=== PATIENT | male | born 1960 | race Caucasian/White ===

== ENCOUNTER 2018-08-07 12:03 | Inpatient (IN) | payer OTHER ==
[2018-08-07] MEDS ORDERED: ASPIRIN 81 MG PO STA (12:21)
[2018-08-07] MEDS ORDERED: MORPHINE SULFATE 2 MG/ML SYRINGE IVP STA (12:21)
[2018-08-07] MEDS ORDERED: MAG HYDROX/AL HYDROX/SIMETH 30 ML, HYOSCYAMINE ELIXIR 10 ML, CIMETIDINE HCL 300 MG, LID... PO STA ×4 (12:22)
--- NOTE | 2018-08-07 12:24 | ED ---
General Adult HPI - General Chief complaint: Chest Pain Stated complaint: CHEST PAIN Time Seen by Provider: 08/07/18 12:14 Source: patient, RN notes reviewed, old records reviewed Mode of arrival: ambulatory Limitations: no limitations - History of Present Illness Initial comments: 58-year-old male 3 days of epigastric and lower chest pain. Patient states this is felt burning in nature although he does report a tightness and squeezing sensation in his chest. He initially treated this to indigestion and his been taking indigestion medication for the past several days with minimal relief. He does report some dyspnea and diaphoresis associated with the symptoms. He has previous history of CAD with stenting in 2004. Patient is a current smoker. He has had minimal cough which is nonproductive. Denies significant vomiting. Denies abdominal pain. He reports lower extremity swelling which is chronic and unchanged. - Related Data Allergies Allergy/AdvReac Type Severity Reaction Status Date / Time No Known Allergies Allergy Verified 08/07/18 12:09 Review of Systems ROS Statement: Those systems with pertinent positive or pertinent negative responses have been documented in the HPI. ROS Other: All systems not noted in ROS Statement are negative. Past Medical History Past Medical History: GERD/Reflux, Myocardial Infarction (PA) History of Any Multi-Drug Resistant Organisms: None Reported Past Surgical History: Heart Catheterization With Stent Past Psychological History: No Psychological Hx Reported Smoking Status: Current every day smoker Past Alcohol Use History: Daily Past Drug Use History: Marijuana General Exam Limitations: no limitations General appearance: alert, in distress Head exam: Present: atraumatic, normocephalic Eye exam: Present: normal appearance, PERRL Neck exam: Present: normal inspection, tenderness Respiratory exam: Present: wheezes, rhonchi. Absent: respiratory distress Cardiovascular Exam: Present: normal rhythm, bradycardia GI/Abdominal exam: Present: soft, tenderness. Absent: distended, guarding, rebound Extremities exam: Present: pedal edema, other (Venous stasis) Neurological exam: Present: alert, oriented X3 Psychiatric exam: Present: normal affect, normal mood Skin exam: Present: warm, intact, diaphoretic. Absent: cyanosis Course Vital Signs 08/07/18 12:09 Temperature 97.9 F Pulse Rate 52 L Respiratory 18 Rate Blood Pressure 118/77 O2 Sat by Pulse 94 L Oximetry EKG Findings - EKG Comments: EKG Findings:: EKG: Sinus bradycardia, ST segment elevation in the inferior leads, ST segment depression in aVL and V2. Acute PA. Rate of 52, ND interval 164, QRS duration 86, QTC 442 Medical Decision Making - Medical Decision Making 58-year-old male presenting with intermittent chest pain over the past several days, worsening within the past hour. EKG reveals acute ST segment elevation PA. Claims Director was activated, discussed case with cardiology on-call. Patient given aspirin, heparin, morphine, and Lipitor. Nitroglycerin held secondary to inferior PA. Patient taken immediately to the Claims Director. Disposition Clinical Impression: ST elevation myocardial infarction (STEMI) Disposition: ADMITTED IP TO THIS HOSP Condition: Serious Is patient prescribed a controlled substance at d/c from ED?: No Referrals: Suman Gaspar MD [Primary Care Provider] - 1-2 days Decision to Admit Reason: Admit from EC Decision Date: 08/07/18 Decision Time: 12:37
[2018-08-07] MEDS ORDERED: HEPARIN SODIUM,PORCINE 5,000 UNIT/ML 1 ML VIAL IV STA (12:32)
[2018-08-07] MEDS ORDERED: NALOXONE 0.4 MG/ML 1 ML VIAL IV PRN (12:33)
[2018-08-07] MEDS ORDERED: ATORVASTATIN 80 MG TAB PO STA (12:33)
--- NOTE | 2018-08-07 12:51 | XR ---
EXAMINATION TYPE: XR chest 1V portable DATE OF EXAM: 08/07/2018 COMPARISON: NONE HISTORY: Chest pain TECHNIQUE: Single frontal view of the chest is obtained. FINDINGS: There is no focal air space opacity, pleural effusion, or pneumothorax seen. The cardiac silhouette size is upper limits of normal. The osseous structures are intact. IMPRESSION: No acute process.
[2018-08-07 12:54] LABS: Basophils # (A) 0.1 k/uL (0-0.2); Basophils % (A) 1 %; Eosinophils # (A) 0.3 k/uL (0-0.7); Eosinophils % (A) 3 %; HCT 51.2 % (39.0-53.0); Lymphocytes # (A) 1.8 k/uL (1.0-4.8); Lymphocytes % (A) 21 %; MCHC 33.2 g/dL (31.0-37.0); MCV 99.3 fL (80.0-100.0); Mean Platelet Volume 6.6; Monocytes # (A) 0.4 k/uL (0-1.0); Monocytes % (A) 4 %; Neutrophils # (A) 6.1 k/uL (1.3-7.7); Neutrophils % (A) 70 %; Platelet Count 227 k/uL (150-450); RBC 5.16 m/uL (4.30-5.90); RDW 12.7 % (11.5-15.5); WBC 8.6 k/uL (3.8-10.6)
[2018-08-07] MEDS ORDERED: MIDAZOLAM 2 MG/2 ML VIAL IVP ONE (12:57)
[2018-08-07] MEDS ORDERED: fentaNYL (PF) 50 MCG/ML 2 ML AMP IVP ONE (12:57)
[2018-08-07] MEDS ORDERED: LIDOCAINE 1% INJ 10MG/ML (20 ML MDV) SQ ONE (12:57)
[2018-08-07] MEDS ORDERED: IV FLUID CONTINUATION 1,000 ML IV ONE (13:06)
[2018-08-07] MEDS ORDERED: HYDROmorphone 2 MG/ML 1 ML SYRINGE IVP ONE (13:12)
[2018-08-07] MEDS ORDERED: BIVALIRUDIN 250 MG in SODIUM CHLORIDE 0.9% 32 ML IV ONE (13:16)
[2018-08-07] MEDS ORDERED: BIVALIRUDIN BOLUS 250 MG/50 ML IV ONE (13:16)
[2018-08-07 13:19] LABS: Partial Thromboplastin Time 23.3 sec (22.0-30.0); Prothrombin Time 10.7 sec (9.0-12.0)
--- NOTE | 2018-08-07 13:25 | P.CARDCATH ---
Date of Procedure: 08/07/18 Preoperative Diagnosis: Acute inferior wall myocardial infarctions Postoperative Diagnosis: Total occlusion of the distal RCA Procedure(s) Performed: Left heart catheterization without left ventriculography Description of Procedure: HISTORY: This is a 58-year-old gentleman with history of ischemic or disease with a previous stent placement of the left anterior descending coronary artery done several years ago who was admitted now with complaints of chest pain and EKG evidence of acute inferior wall myocardial infarction. Patient has been having on and off symptoms for 2 days but became more steady and intense about an hour before arriving into the emergency room. Patient hasn't been following with a special makeup fx artist instructor and has been taking only aspirin. He continued to smoke CONSENT:I have discussed the risks, benefits and alternative therapies for the above-mentioned procedure and for both sedation/analgesia as well as necessary blood product administration, if indicated, as they pertain to this patient. The patient has indicated understanding and acceptance of the risks and procedures discussed. [] PROCEDURE: Patient was brought to the lab in a fasting state. Patient was given some IV sedation. The right groin is infiltrated with lidocaine and right femoral artery was entered using Seldinger technique. A 6-Austrian catheter was left in place and selective coronary arteriography was performed. Patient to lerated the procedure well. Patient went on to have stent placement of the RCA by Dr. Sykes No immediate complications. Conscious Sedation: Versed 1mg Fentanyl 50 g. Dilaudid: 0.5 milligrams Duration 25minutes HEMODYNAMICS: The aortic pressure is 140/70. Left ventricle end-diastolic pressure was not measured. SELECTIVE CORONARY ARTERIOGRAPHY: LEFT MAIN: Normal length and free of occlusive disease THE LEFT ANTERIOR DESCENDING CORONARY ARTERY:. Good caliber vessel with patent stent in the LAD THE LEFT CIRCUMFLEX AND IS CORONARY ARTERY:, Moderate caliber vessel free of any significant focal lesion THE RIGHT CORONARY ARTERY:. Large caliber vessel which is totally occluded in the mid to distal portion LEFT VENTRICULOGRAPHY: Not performed FINAL IMPRESSION:. Total occlusion of the large caliber RCA PLAN: Proceed with stent placement. Being performed by Dr. Sykes PROGNOSIS: Guarded
[2018-08-07 13:26] LABS: ALT 63 U/L (21-72); AST 52 U/L (17-59); Albumin 4.2 g/dL (3.5-5.0); Alkaline Phosphatase 52 U/L (38-126); Anion Gap 10 mmol/L; Blood Urea Nitrogen 15 mg/dL (9-20); Calcium 9.4 mg/dL (8.4-10.2); Carbon Dioxide 24 mmol/L (22-30); Chloride 103 mmol/L (98-107); Glucose 212 mg/dL (74-99); Lipase 174 U/L (23-300); Potassium 4.1 mmol/L (3.5-5.1); Sodium 137 mmol/L (137-145); Total Bilirubin 0.9 mg/dL (0.2-1.3); Total Protein 6.9 g/dL (6.3-8.2)
--- NOTE | 2018-08-07 13:29 | P.CRDCN ---
History of Present Illness Consult date: 08/07/18 History of present illness: This is a 58-year-old gentleman with history of ischemic heart disease with previous stent placement of the left anterior descending coronary artery done several years ago. Patient doesn't follow with any machine cloth measurer or physician. He has been taking only aspirin. He also resumed smoking recently. He presented to the emergency room this time with complaints of ongoing chest pains off-and-on for 2 days. Apparently the pain became a more steady one hour prior to arrival to the emergency room. His EKG showed evidence of ST elevation in inferior leads suggestive of inferior wall myocardial infarction. Patient is advised to have cardiac catheterization with the intention of primary intervention Review of Systems Not obtained Past Medical History Past Medical History: GERD/Reflux, Myocardial Infarction ([place]) History of Any Multi-Drug Resistant Organisms: None Reported Past Surgical History: Heart Catheterization With Stent Past Psychological History: No Psychological Hx Reported Smoking Status: Current every day smoker Past Alcohol Use History: Daily Past Drug Use History: Marijuana Medications and Allergies Allergies Allergy/AdvReac Type Severity Reaction Status Date / Time No Known Allergies Allergy Verified 08/07/18 12:09 Physical Exam Vitals: Vital Signs Temp Pulse Resp BP Pulse Ox 08/07/18 12:38 60 18 134/80 98 08/07/18 12:09 97.9 F 52 L 18 118/77 94 L Intake and Output 08/06/18 08/07/18 08/07/18 22:59 06:59 14:59 Other: Weight 115.666 kg GENERAL EXAM: Patient is alert and oriented and appears to be in moderate to severe distress HEART: S1 and S2 normal with no audible mumurs or gallops. Regular rhythm, femorals equal on both sides.. ABDOMEN: Soft. Lungs: appeared to be clear. SKIN: No rashes CENTRAL NERVOUS SYSTEM: No focal deficits. EXTREMITIES: No cyanosis, clubbing or edema. Results 08/07/18 12:33 08/07/18 12:33 Cardiac Enzymes 08/07/18 Range/Units 12:33 AST 52 (17-59) U/L Coagulation 08/07/18 Range/Units 12:33 PT 10.7 (9.0-12.0) sec APTT 23.3 (22.0-30.0) sec CBC 08/07/18 Range/Units 12:33 WBC 8.6 (3.8-10.6) k/uL RBC 5.16 (4.30-5.90) m/uL Hgb 17.0 (13.0-17.5) gm/dL Hct 51.2 (39.0-53.0) % Plt Count 227 (150-450) k/uL Comprehensive Metabolic Panel 08/07/18 Range/Units 12:33 Sodium 137 (137-145) mmol/L Potassium 4.1 (3.5-5.1) mmol/L Chloride 103 (98-107) mmol/L Carbon Dioxide 24 (22-30) mmol/L BUN 15 (9-20) mg/dL Creatinine 0.79 (0.66-1.25) mg/dL Glucose 212 H (74-99) mg/dL Calcium 9.4 (8.4-10.2) mg/dL AST 52 (17-59) U/L ALT 63 (21-72) U/L Alkaline Phosphatase 52 (38-126) U/L Total Protein 6.9 (6.3-8.2) g/dL Albumin 4.2 (3.5-5.0) g/dL Current Medications Generic Name Dose Route Start Last Admin Trade Name Freq PRN Reason Stop Dose Admin Naloxone HCl 0.2 mg 08/07/18 12:33 Narcan IV Q2M PRN Opioid Reversal Intake and Output 08/06/18 08/07/18 08/07/18 22:59 06:59 14:59 Other: Weight 115.666 kg Patient Weight 08/08/18 06:59 Weight 115.666 kg 08/07/18 12:33 08/07/18 12:33 EKG Interpretations (text) Sinus rhythm with acute inferior wall OK Assessment and Plan (1) Acute transmural inferior wall OK Current Visit: Yes Status: Acute Code(s): I21.19 - STEMI INVOLVING OTH CORONARY ARTERY OF INFERIOR WALL SNOMED Code(s): 01671559 (2) History of ischemic heart disease Current Visit: Yes Status: Acute Code(s): Z86.79 - PERSONAL HISTORY OF OTHER DISEASES OF THE CIRCULATORY SYSTEM SNOMED Code(s): 459755465 Plan: Proceed with cardiac catheterization with the intention of primary intervention.
[2018-08-07] MEDS ORDERED: CLOPIDOGREL 75 MG TAB PO ONE (13:30)
[2018-08-07] MEDS ORDERED: IOPAMIDOL-370 150ML BTL INJ ONE (13:31)
[2018-08-07] MEDS ORDERED: IOPAMIDOL-370 100ML BTL INJ ONE (13:34)
[2018-08-07] MEDS ORDERED: ZOLPIDEM 5 MG TAB PO PRN (13:42)
[2018-08-07] MEDS ORDERED: RX INFO: IV CONTRAST WAS GIVEN 1 EACH MISC MISCELLANE PRN (13:42)
[2018-08-07] MEDS ORDERED: NITROGLYCERIN SL TABS 0.4 MG TAB SUBLINGUAL PRN (13:42)
[2018-08-07] MEDS ORDERED: ATROPINE SULFATE 0.1 MG/ML 10ML SYRINGE IV PRN (13:42)
[2018-08-07] MEDS ORDERED: MAG HYDROX/AL HYDROX/SIMETH 30 ML CUP PO PRN (13:42)
[2018-08-07] MEDS: SODIUM CHLORIDE 0.9% 1,000 ML IV SCH ×2 (14:30→23:17)
[2018-08-07 14:55] LABS: Glucose,Whole Blood 103 mg/dL (75-99)
[2018-08-07] MEDS: NICOTINE 21MG/24HR PATCH TRANSDERM SCH (18:51)
--- NOTE | 2018-08-07 19:44 | HP ---
HISTORY AND PHYSICAL DATE OF ADMISSION AND SERVICE: 08/07/2018 PRESENTING COMPLAINT: Chest pain. HISTORY OF PRESENTING COMPLAINT: This is a pleasant 58-year-old patient who follows with Dr. Suman Gaspar. The patient has known coronary artery disease with a stent [place] [address] Giles. Patient was taking Lipitor and aspirin at home. For one month patient has been having progressive more and more chest pain, basically with activity, better with rest, and patient push it out. Patient today started with far more chest pain anteriorly with heartburn, became dizzy, lightheaded with perspiration. Pain went down the left arm and patient's symptoms became rather severe. Hence patient decided to present to the ER. In the ER patient was found to have ST elevation in the inferior leads and depression in the lateral lead and was diagnosed with acute ST-elevation myocardial infarction. Patient was taken to the cardiac catheterization lab and patient was found to have total occlusion of the large-caliber RCA. Successful angioplasty with stenting was carried out by Dr. Apodaca. Post-procedure patient was moved to the ICU. Lying in bed, not in distress. Patient's chronic stable medical conditions include GERD, hyperlipidemia, osteoarthritis. REVIEW OF SYSTEMS: CONSTITUTIONAL: Tired. HEENT: None. RESPIRATORY: As above. CARDIOVASCULAR: As above. GASTROINTESTINAL: Heartburn. GENITOURINARY: None. MUSCULOSKELETAL: Arthritic pain in joints, especially in the hands. DERMATOLOGICAL: None. HEMATOLOGICAL: None. LYMPHATICS: None. PSYCHIATRY: None. NEUROLOGICAL: None. PAST MEDICAL HISTORY: 1. Coronary artery disease with stent. 2. GERD. 3. Hyperlipidemia. PAST SURGICAL HISTORY: Cardiac cath with stent in 2005. SOCIAL HISTORY: The patient smokes a pack a day. Does 3 marijuana joints a day. Works at [employer]. . FAMILY HISTORY: Reviewed; noncontributory to presentation. HOME MEDICATIONS: 1. Motrin 200 to 400 mg q.6 p.r.n. 2. Lipitor 40 mg at bedtime. 3. Aspirin 325 p.o. daily. ALLERGIES: NONE. PHYSICAL EXAMINATION: VITAL SIGNS ON PRESENTATION: Temperature 97.9, pulse 52, respiration 18, blood pressure 118/77, pulse ox 94% on room air. GENERAL APPEARANCE: Well built; BMI 36.6. Lying in bed, comfortable. EYES: Pupils equal. Conjunctivae normal. HEENT: External appearance of nose and ears normal. Oral cavity normal. NECK: JVD not raised. Mass not palpable. RESPIRATORY: Effort normal. LUNGS: Slightly decreased breath sounds. CARDIOVASCULAR: First and second sounds normal. No edema. ABDOMEN: Soft, non-tender. Liver and spleen not palpable. LYMPHATIC: No lymph node palpable in neck or axillae. PSYCHIATRY: Alert and oriented x3. Mood and affect normal. NEUROLOGICAL: Pupils equal. Cranial nerves grossly intact. Power and sensation grossly intact. INVESTIGATIONS: White count 8.6, hemoglobin 17.0, potassium 4.1. BUN and creatinine are normal. First troponin was 0.382. Check x-ray film, personally reviewed by me, shows cardiomegaly, some venous prominence. This is a portable film. ASSESSMENT: 1. Acute ST-elevation myocardial infarction of the inferior wall. 2. Emergent cardiac catheterization with angioplasty and stent to the right coronary artery. 3. Obesity; body mass index 36.6. 4. Coronary artery disease with prior stent in 2005. 5. Gastroesophageal reflux disease. 6. Primary osteoarthritis. 7. Chronic nicotine dependence. Patient is a cigarette smoker. 8. Recreational cannabis use. PLAN: Patient is currently on aspirin, Lipitor, Plavix, Zestril, Lopressor. Will also add a nicotine patch. Care was discussed with the patient. Questions were answered. MMODL / IJN: [id number] /
--- NOTE | 2018-08-07 20:23 | PTCA ---
PERCUTANEOUSTRANS CORORONARY ANGIOGRAPHY DATE OF SERVICE: 08/07/2018 PERFORMING PHYSICIAN: Jamel Apodaca MD, cardiovascular operating room nurse. PROCEDURE PERFORMED: Successful stenting of the mid right coronary artery using a 4.0 x 18 mm Xience drug- eluting stent with an excellent angiographic result and reduction of stenosis from 100% to 0%. INDICATION: This is a pleasant 58-year-old gentleman with known history of coronary artery disease who presented to the hospital with chest discomfort and was diagnosed with acute inferior ST-elevation myocardial infarction. He underwent heart catheterization by Dr. Carlson and was found to have an acute total occlusion of the mid right coronary artery. COMPLICATIONS: None. LEVEL OF SEDATION: Moderate, with sedation length of 21 minutes. PROCEDURE DESCRIPTION: Please refer to the diagnostic heart catheterization that was performed by Dr. Carlson. Anticoagulation was initiated using Angiomax. Subsequently I did engage the right coronary artery using JR4 guide. A run-through wire was used to wire the right coronary artery. After that I did balloon angioplasty of the right coronary artery using a 3.5 x 15 mm balloon before I deployed a 4.0 x 18 mm Xience drug-eluting stent where the stent was positioned under fluoroscopic guidance and deployed under 20 atmospheres for 20 seconds. The following angiogram showed excellent angiographic results and the procedure was completed without any complication. POST-PROCEDURE MANAGEMENT: 1. Dual anti-platelet therapy. 2. Risk factor modifications. 3. Follow up with the patient. MMODL / IJN: [id number] /
[2018-08-07] MEDS ORDERED: METOPROLOL TARTRATE 25 MG TAB PO SCH (21:00)
[2018-08-07] MEDS: ATORVASTATIN 80 MG TAB PO SCH (21:24)
[2018-08-07] MEDS: FAMOTIDINE 20 MG TAB PO SCH (21:25)
[2018-08-08 05:49] LABS: Basophils % (A) 0 %; Eosinophils # (A) 0.2 k/uL (0-0.7); Eosinophils % (A) 2 %; HCT 51.1 % (39.0-53.0); HGB 16.3 gm/dL (13.0-17.5); Lymphocytes # (A) 1.4 k/uL (1.0-4.8); Lymphocytes % (A) 16 %; MCH 32.5 pg (25.0-35.0); MCHC 31.9 g/dL (31.0-37.0); MCV 101.9 fL (80.0-100.0); Macrocytosis Slight; Mean Platelet Volume 6.7; Monocytes # (A) 0.5 k/uL (0-1.0); Monocytes % (A) 6 %; Neutrophils # (A) 6.4 k/uL (1.3-7.7); Neutrophils % (A) 75 %; Platelet Count 177 k/uL (150-450); RBC 5.01 m/uL (4.30-5.90); RDW 12.8 % (11.5-15.5); WBC 8.5 k/uL (3.8-10.6)
[2018-08-08 06:00] LABS: Anion Gap 4 mmol/L; Blood Urea Nitrogen 13 mg/dL (9-20); Calcium 8.9 mg/dL (8.4-10.2); Carbon Dioxide 27 mmol/L (22-30); Chloride 107 mmol/L (98-107); Cholesterol 165 mg/dL (<200); Glucose 132 mg/dL (74-99); HDL Cholesterol 34 mg/dL (40-60); LDL Cholesterol,Calculated 90 mg/dL (0-99); Potassium 4.6 mmol/L (3.5-5.1); Sodium 138 mmol/L (137-145); Triglycerides 207 mg/dL (<150)
[2018-08-08] MEDS: ASPIRIN 325 MG TAB PO SCH (08:35)
[2018-08-08] MEDS: FAMOTIDINE 20 MG TAB PO SCH ×2 (08:35→20:34)
[2018-08-08] MEDS: LISINOPRIL 10 MG TAB PO SCH (08:35)
[2018-08-08] MEDS: NICOTINE 21MG/24HR PATCH TRANSDERM SCH (08:36)
--- NOTE | 2018-08-08 10:08 | ECHOF ---
Referral Reason:S/P STEMI MEASUREMENTS -------- HEIGHT: 182.9 cm WEIGHT: 115.7 kg BP: 141/88 IVSd: 1.5 cm (0.6 - 1.1) LVIDd: 5.1 cm (3.9 - 5.3) LVPWd: 1.7 cm (0.6 - 1.1) IVSs: 2.4 cm LVIDs: 2.9 cm LVPWs: 2.5 cm Ao Diam: 2.7 cm (2.0 - 3.7) LA Diam: 3.4 cm (2.7 - 3.8) MV E Serg: 0.69 m/s MV DecT: 177 ms MV A Serg: 0.72 m/s MV E/A Ratio: 0.96 RAP: 5.00 mmHg RVSP: 7.40 mmHg FINDINGS -------- Sinus rhythm. This was a technically difficult study with suboptimal views. The left ventricular size is normal. There is moderate concentric left ventricular hypertrophy. O verall left ventricular systolic function is mildly impaired with, an EF between 45 - 50 %. Basal i nferior LV wall motion is hypokinetic. Mid inferior LV wall motion is hypokinetic. The right ventricle is normal in size and function. The left atrial size is normal. The right atrium is normal in size. Lumason used The aortic valve was not well visualized. There is trace mitral regurgitation. Trace tricuspid regurgitation present. The right ventricular systolic pressure, as measured by Dopp ler, is 7.40mmHg. The pulmonic valve was not well visualized. The aortic root size is normal. IVC Not well visulized. The pericardium is normal. CONCLUSIONS -------- 1. Sinus rhythm. 2. This was a technically difficult study with suboptimal views. 3. The left ventricular size is normal. 4. There is moderate concentric left ventricular hypertrophy. 5. Overall left ventricular systolic function is mildly impaired with, an EF between 45 - 50 %. 6. Basal inferior LV wall motion is hypokinetic. 7. Mid inferior LV wall motion is hypokinetic. 8. The right ventricle is normal in size and function. 9. The left atrial size is normal. 10. The right atrium is normal in size. 11. Lumason used 12. The aortic valve was not well visualized. 13. There is trace mitral regurgitation. 14. Trace tricuspid regurgitation present. 15. The right ventricular systolic pressure, as measured by Doppler, is 7.40mmHg. 16. The pulmonic valve was not well visualized. 17. The aortic root size is normal. 18. IVC Not well visulized. 19. The pericardium is normal. [employer] OPERATOR: Kate Orta RDCS
--- NOTE | 2018-08-08 10:11 | P.PN ---
Subjective Progress Note Date: 08/08/18 This is a 58-year-old gentleman who was admitted yesterday through emergency room with acute inferior wall myocardial infarction. Patient had a cardiac catheterization and stent placement of the RCA. Patient has been doing well. He remained stable. Patient was mildly bradycardic, Yesterday. Today his heart rate is about 55-60. Blood pressure is about 130/90. Patient is currently on Zestril, metoprolol, Lipitor, aspirin and Plavix. His groin is soft. Lungs are clear. Heart is regular. We'll increase his activity. Transfer him to stepdown unit. Echocardiogram. If possible discharge within next 24-48 hours Objective - Vital Signs Vital signs: Vital Signs Temp 97.6 F 08/08/18 08:00 Pulse 62 08/08/18 09:00 Resp 12 08/08/18 09:00 BP 157/93 08/08/18 09:00 Pulse Ox 95 08/08/18 09:00 Intake & Output 08/07/18 08/08/18 08/08/18 18:59 06:59 18:59 Intake Total 712 1200 490 Output Total 2000 1000 550 Balance -1288 200 -60 Weight 115.666 kg 114.8 kg Intake: IV 712 1200 250 IV Fluid Continuation 1, 200 000 ml @ 0 mls/hr IV .K [facility] Rx#:[id number] Sodium Chloride 0.9% 1, 300 1200 250 000 ml @ 100 mls/hr IV . Q10H [facility] Rx#:[id number] Oral 240 Output: Urine 1999 1000 550 Other: Voiding Method Urinal Urinal Urinal # Voids 1 1 - Exam GENERAL EXAM: Patient is alert and oriented and doesn't appear to be in any acute distress HEENT: Normocephalic. Normal reaction of pupils, equal size, normal range of extraocular motion. No erythema or exudates in the throat. NECK: No masses, no nuchal rigidity. CHEST: No chest wall deformity. LUNGS: Equal air entry with no crackles or wheeze. HEART: S1 and S2 normal with no audible mumurs or gallops. Regular rhythm, femorals equal on both sides.. ABDOMEN: No hepatosplenomegaly, normal bowel sounds, no guarding or rigidity. SKIN: No rashes CENTRAL NERVOUS SYSTEM: No focal deficits. EXTREMITIES: No cyanosis, clubbing or edema. PUNCTURE SITE: Right groin seems to soft without any hematoma - Labs CBC & Chem 7: 08/08/18 05:05 08/08/18 05:05 Labs: Abnormal Lab Results - Last 24 Hours (Table) 08/07/18 08/07/18 08/07/18 Range/Units 12:33 12:33 14:43 MCV (80.0-100.0) fL Glucose 212 H (74-99) mg/dL POC Glucose (mg/dL) 103 H (75-99) mg/dL Troponin I 0.382 H* (0.000-0.034) ng/mL Triglycerides (<150) mg/dL HDL Cholesterol (40-60) mg/dL 08/08/18 08/08/18 Range/Units 05:05 05:05 MCV 101.9 H (80.0-100.0) fL Glucose 132 H (74-99) mg/dL POC Glucose (mg/dL) (75-99) mg/dL Troponin I (0.000-0.034) ng/mL Triglycerides 207 H (<150) mg/dL HDL Cholesterol 34 L (40-60) mg/dL Assessment and Plan (1) Acute transmural inferior wall [place] Current Visit: Yes Status: Acute Code(s): I21.19 - STEMI INVOLVING OTH CORONARY ARTERY OF INFERIOR WALL SNOMED Code(s): 58368118 (2) History of ischemic heart disease Current Visit: Yes Status: Acute Code(s): Z86.79 - PERSONAL HISTORY OF OTHER DISEASES OF THE CIRCULATORY SYSTEM SNOMED Code(s): 342341834 Plan: Patient's activity to be increased. Patient to be transferred to stepdown unit. Continue current medical therapy. Patient is encouraged to quit smoking
[2018-08-08] MEDS: METOPROLOL TARTRATE 12.5 MG TAB PO SCH ×2 (10:59→20:34)
[2018-08-08 11:05] VITALS: BMI 36.3
[2018-08-08] MEDS: CLOPIDOGREL 75 MG TAB PO SCH (12:33)
[2018-08-08] MEDS: ATORVASTATIN 80 MG TAB PO SCH (20:34)
--- NOTE | 2018-08-09 00:34 | PN ---
PROGRESS NOTE DATE OF SERVICE: 08/08/2018. PRESENTING COMPLAINT: Chest pain. INTERVAL HISTORY: This patient presented with acute FL with coronary intervention. Today feels a bit tired. Breathing is stable. No chest pain. Wants to rest. REVIEW OF SYSTEMS: Done for constitutional, cardiovascular, GI, pulmonary; relevant findings as above. CURRENT MEDICATIONS: Reviewed include aspirin, Lipitor, Plavix, Zestril, Lopressor. PHYSICAL EXAMINATION: VITAL SIGNS: Temperature 97.7, pulse 59, respirations 18, blood pressure 147/82, pulse ox 93 percent on room air. GENERAL APPEARANCE: Lying in bed, awake. EYES: Pupils equal. Conjunctivae normal. NECK: JVD not raised. Mass not palpable. Respiratory effort normal. LUNGS: Decreased breath sounds. CARDIOVASCULAR: 1st and 2nd heart sounds normal. No edema. ABDOMEN: Soft, nontender. Liver and spleen not palpable. PSYCHIATRY: Alert and oriented x3. Mood and affect normal. INVESTIGATIONS: White count 8.5, hemoglobin 16.3, potassium 4.6. BUN and creatinine normal. Troponin 9.4, LDL 90. 2D echocardiogram results are noted. ASSESSMENT: 1. Acute ST-elevation myocardial infarction of the inferior wall. 2. Emergent cardiac cath with angioplasty and stent to the RCA. 3. Obesity; BMI 36.6. 4. Coronary artery with prior stent in 2005. 5. Gastroesophageal reflux disease. 6. Primary osteoarthritis. 7. Chronic nicotine dependence, patient is a cigarette smoker. 8. Recreational cannabis use. 9. Ischemic cardiomyopathy both from diastolic and systolic dysfunction. PLAN: Continue medication and treatment plan. Patient encouraged to be out of bed. MMODL / IJN: [id number] /
[2018-08-09 06:07] VITALS: RESP 18
[2018-08-09] MEDS: NICOTINE 21MG/24HR PATCH TRANSDERM SCH (08:02)
[2018-08-09] MEDS: CLOPIDOGREL 75 MG TAB PO SCH (08:02)
[2018-08-09] MEDS: METOPROLOL TARTRATE 12.5 MG TAB PO SCH (08:02)
[2018-08-09] MEDS: ASPIRIN 325 MG TAB PO SCH (08:02)
[2018-08-09] MEDS: FAMOTIDINE 20 MG TAB PO SCH (08:02)
[2018-08-09] MEDS: LISINOPRIL 10 MG TAB PO SCH (08:02)
[2018-08-09 08:10] VITALS: TEMP 98.2
[2018-08-09 11:41] VITALS: BP 173/89; PULSE 64
[2018-08-09] MEDS ORDERED: LISINOPRIL 10 MG TAB PO STA (11:49)
--- NOTE | 2018-08-09 13:09 | P.PN ---
Subjective Progress Note Date: 08/09/18 This is a 58-year-old gentleman who was admitted yesterday through emergency room with acute inferior wall myocardial infarction. Patient had a cardiac catheterization and stent placement of the RCA. Patient has been doing well. He remained stable. Patient was mildly bradycardic, Yesterday. Today his heart rate is about 55-60. Blood pressure is about 130/90. Patient is currently on Zestril, metoprolol, Lipitor, aspirin and Plavix. His groin is soft. Lungs are clear. Heart is regular. We'll increase his activity. Transfer him to stepdown unit. Echocardiogram. If possible discharge within next 24-48 hours. 08/09/2018: This a 58-year-old gentleman was admitted with acute inferior wall. Had stent placement of the RCA. Clinically stable. His echocardiogram showed mild hypokinesis of the inferobasal segment with an ejection fraction close to 50%. Denies any chest pain or shortness of breath. Lungs are clear. Heart is regular. Patient is tolerating activity. He could be discharged home on aspirin and Plavix. Lisinopril. Metoprolol and also Lipitor. Follow-up in the office in one week. Objective - Vital Signs Vital signs: Vital Signs Temp 98.2 F 08/09/18 11:39 Pulse 64 08/09/18 11:39 Resp 18 08/09/18 11:39 BP 173/89 08/09/18 11:39 Pulse Ox 94 L 08/09/18 11:39 Intake & Output 08/08/18 08/09/18 08/09/18 18:59 06:59 18:59 Intake Total 1090 240 180 Output Total 550 Balance 540 240 180 Weight 114.8 kg 112.3 kg Intake: IV 250 Sodium Chloride 0.9% 1, 250 000 ml @ 100 mls/hr IV . Q10H LANIE Rx#:[id number] Oral 840 240 180 Output: Urine 550 Other: Voiding Method Urinal Urinal # Voids 1 1 - Exam GENERAL EXAM: Patient is alert and oriented and doesn't appear to be in any acute distress HEENT: Normocephalic. Normal reaction of pupils, equal size, normal range of extraocular motion. No erythema or exudates in the throat. NECK: No masses, no nuchal rigidity. CHEST: No chest wall deformity. LUNGS: Equal air entry with no crackles or wheeze. HEART: S1 and S2 normal with no audible mumurs or gallops. Regular rhythm, femorals equal on both sides.. ABDOMEN: No hepatosplenomegaly, normal bowel sounds, no guarding or rigidity. SKIN: No rashes CENTRAL NERVOUS SYSTEM: No focal deficits. EXTREMITIES: No cyanosis, clubbing or edema. PUNCTURE SITE: Right groin seems to soft without any hematoma - Labs CBC & Chem 7: 08/08/18 05:05 08/08/18 05:05 Assessment and Plan (1) Acute transmural inferior wall CA Current Visit: Yes Status: Acute Code(s): I21.19 - STEMI INVOLVING OTH CORONARY ARTERY OF INFERIOR WALL SNOMED Code(s): 91934580 (2) History of ischemic heart disease Current Visit: Yes Status: Acute Code(s): Z86.79 - PERSONAL HISTORY OF OTHER DISEASES OF THE CIRCULATORY SYSTEM SNOMED Code(s): 005316533 Plan: Patient's activity to be increased. Patient to be transferred to stepdown unit. Continue current medical therapy. Patient is encouraged to quit smoking. 08/09/2018. Patient remained clinically stable. Tolerating activity well. No arrhythmias noted. Echo showed mild hypokinesis of the inferobasal segment with an ejection fraction of 50%. Patient is being discharged home. Follow-up in the office
--- NOTE | 2018-08-09 20:59 | DS ---
DISCHARGE SUMMARY DATE OF ADMISSION: August 07, 2018. DATE OF DISCHARGE: August 09, 2018. FINAL DIAGNOSES: 1. Acute ST-elevation myocardial infarction of the inferior wall. 2. Emergent cardiac catheterization with angioplasty and stent to the RCA. 3. Obesity; BMI 36.6. 4. Coronary artery disease with prior stent in 2005. 5. Gastroesophageal reflux disease. 6. Primary osteoarthritis. 7. Chronic nicotine dependence, patient is a cigarette smoker. 8. Recreational cannabis use. 9. Ischemic cardiomyopathy both from diastolic and systolic dysfunction, EF 45-50 percent. HOSPITAL COURSE: This patient presented with chest pain, ruled in for [place]. Above intervention was carried out. The patient advised against smoking and cannabis use. Doing better, up and about seen by Cardiology today. The patient is okay to be discharged home. CONSULTATION: Dr. Carlson from Cardiology, Dr. Apodaca from Interventional Cardiology. PHYSICAL EXAMINATION: VITAL SIGNS: Temperature 98.2. Pulse 54, respiratory 18, blood pressure 169/93, pulse ox 92 percent on room air. LUNGS: Fair air entry. CARDIOVASCULAR: 1st and 2nd sounds normal. LABORATORY DATA: White count 8.5, hemoglobin 16.3, potassium 4.6, LDL 90. DISCHARGE MEDICATIONS: 1. Aspirin 81 mg a day. 2. Lipitor 80 mg q.h.s. 3. Plavix 75 mg a day. 4. Pepcid 20 mg b.i.d. 5. Zestril 20 mg p.o. daily. 6. Lopressor 12.5 p.o. b.i.d. 7. Nicotine 21 mg patch. 8. Nitrostat 0.4 sublingual q.5 p.r.n. FOLLOWUP: Follow up with Dr. Gaspar on August 31, 2018, follow up with Dr. Carlson in [address] Suman Gaspar. MMODL / IJN: [id number] /
[2018-08-10] MEDS ORDERED: ASPIRIN 81 MG PO SCH (09:00)
[2018-08-10] MEDS ORDERED: LISINOPRIL 20 MG TAB PO SCH (09:00)
[2018-08-10] MEDS ORDERED: ASPIRIN 325 MG TAB PO SCH (09:00)
== END 2018-08-09 16:22 | disposition home or self-care (01) | DRG 247 ==
LOC: EC 12:03 → 2SICU 12:33 → 3SCARD 08-08 11:41
PROVIDERS: ADMIT Hospitalist; ATTEND Hospitalist
PROC: B2111ZZ Fluoroscopy of Multiple Coronary Arteries using Low Osmolar Contrast (ICD-10-PCS; 2018-08-07)
PROC: 4A023N7 Measurement of Cardiac Sampling and Pressure, Left Heart, Percutaneous Approach (ICD-10-PCS; principal; 2018-08-07 08:55)
PROC: 027034Z Dilation of Coronary Artery, One Artery with Drug-eluting Intraluminal Device, Percutaneous Approach (ICD-10-PCS; 2018-08-07 08:55)
DX: I21.19 ST elevation (STEMI) myocardial infarction involving other coronary artery of inferior wall (principal); K21.9 Gastro-esophageal reflux disease without esophagitis; F17.200 Nicotine dependence, unspecified, uncomplicated; I25.10 Atherosclerotic heart disease of native coronary artery without angina pectoris; I25.82 Chronic total occlusion of coronary artery; E66.9 Obesity, unspecified; E78.5 Hyperlipidemia, unspecified; F17.210 Nicotine dependence, cigarettes, uncomplicated; F32.9 Major depressive disorder, single episode, unspecified; I25.5 Ischemic cardiomyopathy; M19.91 Primary osteoarthritis, unspecified site; Z68.36 Body mass index [BMI] 36.0-36.9, adult; I25.2 Old myocardial infarction; Z95.5 Presence of coronary angioplasty implant and graft; Z79.82 Long term (current) use of aspirin; Z79.899 Other long term (current) drug therapy
CPT/HCPCS: 71045; 80048; 80053; 80061; 83690; 83735; 83880; 84484; 85025; 85610; 85730; 93306; 93454; 96374; 96375; 99285; C1874

== ENCOUNTER 2019-12-10 21:28 | Inpatient (IN) | payer OTHER ==
[2019-12-10] MEDS ORDERED: ASPIRIN 81 MG PO STA (21:50)
[2019-12-10] MEDS ORDERED: NITROGLYCERIN-D5W PMX 50 MG in DEXTROSE/WATER 1 250ML.BAG IV ONE (21:50)
--- NOTE | 2019-12-10 21:50 | ED ---
Chest Pain HPI - General Chief Complaint: Chest Pain Stated Complaint: Poss heart attack Time Seen by Provider: 12/10/19 21:30 Source: patient, family Mode of arrival: wheelchair Limitations: no limitations - History of Present Illness Initial Comments: Patient is a 59-year-old male with past medical history of [place] who presents to the emergency department with reported chest pain. He states that the pain started around 8 PM. He describes it as a heavy sensation in his chest. He also reports that he has some numbness and tingling in his bilateral wrists. States that the pain feels much familiar to when he had a heart attack last year. Patient has a stent that was placed in 2005. Patient was then cathed last year in July after he had a STEMI and an additional stent was placed. Patient denies a ripping or tearing sensation to his back. Denies any upper extremity weakness. No shortness of breath, cough or hemoptysis. No lower extremity swelling. No history of DVT or PE. Pain is graded as a 9 out of 10. No other alleviating, precipitating or modifying factors - Related Data Home Medications Medication Instructions Recorded Confirmed Atorvastatin [Lipitor] 40 mg PO HS 12/10/19 12/10/19 Metoprolol Tartrate [Lopressor] 12.5 mg PO BID 12/10/19 12/10/19 Previous Rx's Medication Instructions Recorded Lisinopril [Zestril] 20 mg PO DAILY #90 tab 08/09/18 Nitroglycerin Sl Tabs [Nitrostat] 0.4 mg SUBLINGUAL Q5M PRN #1 bottle 08/09/18 Apixaban [Eliquis] 2.5 mg PO BID #60 tablet 12/14/19 Aspirin 81 mg PO DAILY #30 chew 12/14/19 Ticagrelor [Brilinta] 90 mg PO BID #60 tab 12/14/19 Allergies Allergy/AdvReac Type Severity Reaction Status Date / Time No Known Allergies Allergy Verified 12/10/19 23:02 Review of Systems ROS Statement: Those systems with pertinent positive or pertinent negative responses have been documented in the HPI. ROS Other: All systems not noted in ROS Statement are negative. EKG Findings - EKG Comments: EKG Findings:: EKG done at 2138 instructed to sinus bradycardia with a ventricular rate of 56. UT interval 156. QRS 88. QTC of 407. No acute ST segment elevations. Very minimal ST depression in V5 and V6 as well as 1 and aVF. Inverted T-wave in lead 3. No signs of high degree block. No STEMI criteria met. EKG completed at 1229 demonstrates a continued sinus bradycardia with a ventricular rate of 53. UT interval 160. QRS 92. QTC of 435. Patient continues to not have any ST elevation. Q-wave in aVF persists. Mild ST depression in aVL, v5-6 Past Medical History Past Medical History: GERD/Reflux, Myocardial Infarction ([place]) Last Myocardial Infarction Date:: 08/07/2018 History of Any Multi-Drug Resistant Organisms: None Reported Past Surgical History: Heart Catheterization With Stent Date of Last Stent Placement:: 08/07/2018 Past Psychological History: No Psychological Hx Reported Smoking Status: Current every day smoker General Exam Limitations: no limitations General appearance: alert, in no apparent distress Head exam: Present: atraumatic, normocephalic, normal inspection Eye exam: Present: normal appearance, PERRL, EOMI. Absent: scleral icterus, conjunctival injection, periorbital swelling ENT exam: Present: normal exam, mucous membranes moist Neck exam: Present: normal inspection. Absent: tenderness, meningismus, lymphadenopathy Respiratory exam: Present: normal lung sounds bilaterally. Absent: respiratory distress, wheezes, rales, rhonchi, stridor Cardiovascular Exam: Present: regular rate, normal rhythm, normal heart sounds. Absent: systolic murmur, diastolic murmur, rubs, gallop, clicks GI/Abdominal exam: Present: soft, normal bowel sounds. Absent: distended, tenderness, guarding, rebound, rigid Extremities exam: Present: normal inspection, full ROM, normal capillary refill. Absent: tenderness, pedal edema, joint swelling, calf tenderness Back exam: Present: normal inspection Neurological exam: Present: alert, oriented X3, CN II-XII intact Psychiatric exam: Present: normal affect, normal mood Skin exam: Present: warm, dry, intact, normal color. Absent: rash Course Vital Signs 12/10/19 12/10/19 12/11/19 21:31 23:00 00:18 Temperature 97.8 F Pulse Rate 55 L 58 L 60 Pulse Rate [ Pulse Oximetery ] Respiratory 18 17 18 Rate Blood Pressure 132/83 124/83 126/85 Blood Pressure [Right Arm] O2 Sat by Pulse 94 L 96 96 Oximetry 12/11/19 12/11/19 00:32 00:56 Temperature 97.8 F Pulse Rate 56 L Pulse Rate [ 60 Pulse Oximetery ] Respiratory 17 19 Rate Blood Pressure 123/82 Blood Pressure 127/86 [Right Arm] O2 Sat by Pulse 96 96 Oximetry Chest Pain MDM - MDM On arrival patient is probably placed in the trauma bay 2. A thorough history and physical exam was performed. Patient is hooked up to continuous pulse ox and cardiac monitoring. As the patient's symptoms are concerning for acute coronary syndrome he was given 324 mg of chewable aspirin and started on a nitro drip. 12-lead EKG demonstrates no acute ST segment elevation. Lab studies were conducted the patient went for chest x-ray. Lab studies are remarkable for a troponin of 1.5. X-ray is negative for acute critical new process. I did discuss the case with Dr. Crouch at 2308. Patient's pain is well-controlled after Tylenol was given for headache and 4 mg of morphine was given for mild persistent chest pain. Dr. Crouch would like the patient heparinize made nothing by mouth. Patient reports sustaining blunt head trauma last week and because of this the patient is sent for CT which demonstrates no acute intracranial hemorrhage. After this the patient is heparinizes he has no contraindications. Family was updated. Patient was then transferred to the stepdown unit in stable condition Critical Care Time Critical Care Time: Yes Critical Care Time: 35 minutes Disposition Clinical Impression: Acute non-ST elevation myocardial infarction (NSTEMI), Chest pain, History of ischemic heart disease Disposition: ADMITTED IP TO THIS HOSP Condition: Serious Is patient prescribed a controlled substance at d/c from ED?: No Decision to Admit Reason: Admit from EC Decision Date: 12/10/19 Decision Time: 23:27
[2019-12-10 22:02] LABS: Basophils # (A) 0.1 k/uL (0-0.2); Basophils % (A) 1 %; Eosinophils # (A) 0.3 k/uL (0-0.7); Eosinophils % (A) 3 %; HCT 51.7 % (39.0-53.0); HGB 17.3 gm/dL (13.0-17.5); Lymphocytes % (A) 17 %; MCH 33.2 pg (25.0-35.0); MCHC 33.5 g/dL (31.0-37.0); Monocytes # (A) 0.8 k/uL (0-1.0); Monocytes % (A) 7 %; Neutrophils # (A) 8.3 k/uL (1.3-7.7); Neutrophils % (A) 72 %; Platelet Count 228 k/uL (150-450); RBC 5.22 m/uL (4.30-5.90); WBC 11.7 k/uL (3.8-10.6)
[2019-12-10 22:16] LABS: Partial Thromboplastin Time 23.1 sec (22.0-30.0); Prothrombin Time 10.5 sec (9.0-12.0)
[2019-12-10 22:28] LABS: ALT 44 U/L (4-49); AST 47 U/L (17-59); African American GFR (CKD) >90 (>60 ml/min/1.73 sqM); Albumin 4.2 g/dL (3.5-5.0); Alkaline Phosphatase 59 U/L (38-126); Anion Gap 8 mmol/L; Blood Urea Nitrogen 15 mg/dL (9-20); Calcium 9.6 mg/dL (8.4-10.2); Carbon Dioxide 23 mmol/L (22-30); Chloride 102 mmol/L (98-107); Glucose 118 mg/dL (74-99); Magnesium 2.2 mg/dL (1.6-2.3); Non-African American GFR(CKD) >90 (>60 ml/min/1.73 sqM); Potassium 4.5 mmol/L (3.5-5.1); Sodium 133 mmol/L (137-145); Total Bilirubin 1.4 mg/dL (0.2-1.3); Total Protein 6.8 g/dL (6.3-8.2)
--- NOTE | 2019-12-10 22:32 | XR ---
EXAMINATION TYPE: XR chest 2V DATE OF EXAM: 12/10/2019 COMPARISON: 08/07/2018 HISTORY: Chest pain TECHNIQUE: FINDINGS: Heart is normal. Lungs are clear of infiltrate. There is no heart failure. There are no hil ar masses. There are chest leads. Costophrenic angles are clear. IMPRESSION: No active cardiopulmonary disease. Normal heart. No change.
[2019-12-10] MEDS ORDERED: ONDANSETRON 4 MG/2 ML VIAL IVP STA (22:44)
[2019-12-10] MEDS ORDERED: HEPARIN SODIUM,PORCINE 5,000 UNIT/ML 1 ML VIAL IV PRN (23:13)
[2019-12-10] MEDS: HEPARIN SODIUM,PORCINE 5,000 UNIT/ML 1 ML VIAL IV ONE (23:27)
[2019-12-10] MEDS ORDERED: MORPHINE SULFATE 4 MG/ML SYRINGE IVP STA (23:31)
[2019-12-10] MEDS ORDERED: ACETAMINOPHEN TAB 325 MG TAB PO STA (23:32)
--- NOTE | 2019-12-10 23:56 | CT ---
EXAMINATION TYPE: CT brain wo con DATE OF EXAM: 12/10/2019 COMPARISON: None HISTORY: injury CT DLP: 1186.4 mGycm Automated exposure control for dose reduction was used. Images were obtained of the brain without contrast. Ventricles and sulci are fairly normal. There is no mass effect nor midline shift. There is no sign o f intracranial hemorrhage. Calvarium is intact. There is no evidence of cerebral edema. Temporal bone s show normal aeration. IMPRESSION: Negative unenhanced head CT scan.
[2019-12-11] MEDS ORDERED: NALOXONE 0.4 MG/ML 1 ML VIAL IV PRN (00:07)
[2019-12-11] MEDS: HEPARIN SODIUM,PORCINE 5,000 UNIT/ML 1 ML VIAL IV ONE (00:10)
[2019-12-11] MEDS: HEPARIN SOD,PORK IN 0.45% NACL 25,000 UNIT in 0.45% NACL 1 250ML.BAG IV SCH ×2 (00:10→04:46)
[2019-12-11] MEDS ORDERED: NITROGLYCERIN-D5W PMX 50 MG in DEXTROSE/WATER 1 250ML.BAG IV ONE (00:30)
[2019-12-11] MEDS: MORPHINE SULFATE 4 MG/ML SYRINGE IV PRN ×3 (04:44→18:42)
[2019-12-11] MEDS: SODIUM CHLORIDE 0.9% 1,000 ML IV SCH ×2 (05:05→17:50)
[2019-12-11 06:43] LABS: Basophils % (A) 1 %; Eosinophils # (A) 0.3 k/uL (0-0.7); Eosinophils % (A) 4 %; HCT 50.8 % (39.0-53.0); HGB 16.5 gm/dL (13.0-17.5); Lymphocytes # (A) 1.4 k/uL (1.0-4.8); Lymphocytes % (A) 17 %; MCH 32.5 pg (25.0-35.0); MCHC 32.5 g/dL (31.0-37.0); Monocytes # (A) 0.6 k/uL (0-1.0); Monocytes % (A) 7 %; Neutrophils # (A) 5.8 k/uL (1.3-7.7); Neutrophils % (A) 71 %; Platelet Count 184 k/uL (150-450); RBC 5.08 m/uL (4.30-5.90); RDW 12.1 % (11.5-15.5); WBC 8.1 k/uL (3.8-10.6)
[2019-12-11 07:07] LABS: Partial Thromboplastin Time 29.9 sec (22.0-30.0); Prothrombin Time 10.5 sec (9.0-12.0)
[2019-12-11] MEDS: METOPROLOL TARTRATE 12.5 MG TAB PO SCH ×2 (07:54→21:11)
[2019-12-11] MEDS: LISINOPRIL 20 MG TAB PO SCH (07:54)
[2019-12-11] MEDS ORDERED: ALPRAZolam 0.5 MG TAB PO PRN (08:46)
[2019-12-11] MEDS ORDERED: ASPIRIN 325 MG TAB PO STA (08:46)
[2019-12-11] MEDS ORDERED: NITROGLYCERIN SL TABS 0.4 MG TAB SUBLINGUAL PRN (08:46)
[2019-12-11] MEDS ORDERED: ALPRAZolam 0.25 MG TAB PO PRN (08:46)
[2019-12-11] MEDS ORDERED: SODIUM CHLORIDE 0.9% 1,000 ML in EMPTY BAG 1 BAG IV ONE (08:46)
[2019-12-11] MEDS ORDERED: ATORVASTATIN 80 MG TAB PO STA (08:46)
--- NOTE | 2019-12-11 09:31 | P.CRDCN ---
History of Present Illness Consult date: 12/11/19 History of present illness: This is a 59-year-old gentleman with history of ischemic heart disease and stent placement of the left anterior descending coronary artery done several years ago who had stent placement of the RCA in August of this year in the setting of acute inferior wall [place]. Patient has been doing fairly well since then. About 4 days ago patient had a burning chest discomfort and some headache and also some discomfort in the both the wrist. It lasted for a couple of hours and then subsided. Last night patient had similar pain again discarded as a burning sensation across the chest associated some headache and also discomfort in the both wrists. He took couple of nitroglycerin with partial relief. In the emergency room patient was given morphine and Tylenol along with nitroglycerin with relief of pains. His EKG did not reveal any acute changes. However troponin values are abnormal, suggestive of possible unstable angina. In view of his previous history and abnormal enzymes, patient is advised to have a cardiac catheterization for definitive diagnosis. Patient is fully aware of the risks and benefits of the procedure Review of Systems As per the chart Past Medical History Past Medical History: GERD/Reflux, Myocardial Infarction ([place]) Last Myocardial Infarction Date:: 08/07/2018 History of Any Multi-Drug Resistant Organisms: None Reported Past Surgical History: Heart Catheterization With Stent Past Anesthesia/Blood Transfusion Reactions: No Reported Reaction Date of Last Stent Placement:: 08/07/2018 Past Psychological History: No Psychological Hx Reported Smoking Status: Current every day smoker Medications and Allergies Home Medications Medication Instructions Recorded Confirmed Type Lisinopril [Zestril] 20 mg PO DAILY #90 tab 08/09/18 12/10/19 Rx Nitroglycerin Sl Tabs [Nitrostat] 0.4 mg SUBLINGUAL Q5M PRN #1 bottle 08/09/18 12/10/19 Rx Atorvastatin [Lipitor] 40 mg PO HS 12/10/19 12/10/19 History Metoprolol Tartrate [Lopressor] 12.5 mg PO BID 12/10/19 12/10/19 History Allergies Allergy/AdvReac Type Severity Reaction Status Date / Time No Known Allergies Allergy Verified 12/10/19 23:02 Physical Exam Vitals: Vital Signs Temp Pulse Pulse Resp BP BP Pulse Ox 12/11/19 07:58 97.9 F 55 L 18 115/63 94 L 12/11/19 04:00 97.7 F 53 L 17 103/67 93 L 12/11/19 00:56 56 L 19 123/82 96 12/11/19 00:32 97.8 F 60 17 127/86 96 12/11/19 00:18 60 18 126/85 96 12/10/19 23:00 58 L 17 124/83 96 12/10/19 21:31 97.8 F 55 L 18 132/83 94 L Intake and Output 12/10/19 12/11/19 12/11/19 22:59 06:59 14:59 Intake Total 45.995 30.83 Balance 45.995 30.83 Intake: Intake, IV Titration 45.995 30.83 Amount Heparin Sod,Pork in 0.45% 45.995 30.83 NaCl 25,000 unit In 0.45 % NaCl 1 250ml.bag @ 9.19 UNITS/KG/HR 9.999 mls/hr IV .Q24H [facility] Rx#: [id number] Other: Voiding Method Toilet Weight 108.862 kg 109.4 kg GENERAL EXAM: Patient is alert and oriented and doesn't appear to be in any acute distress HEENT: Normocephalic. Normal reaction of pupils, equal size, normal range of extraocular motion. No erythema or exudates in the throat. NECK: No masses, no nuchal rigidity. CHEST: No chest wall deformity. LUNGS: Equal air entry with no crackles or wheeze. HEART: S1 and S2 normal with no audible mumurs or gallops. Regular rhythm, femorals equal on both sides.. ABDOMEN: No hepatosplenomegaly, normal bowel sounds, no guarding or rigidity. SKIN: No rashes CENTRAL NERVOUS SYSTEM: No focal deficits. EXTREMITIES: No cyanosis, clubbing or edema. Results 12/11/19 06:28 12/10/19 21:50 Cardiac Enzymes 12/10/19 12/10/19 12/11/19 Range/Units 21:50 21:50 02:45 AST 47 (17-59) U/L Troponin I 1.520 H* 1.900 H* (0.000-0.034) ng/mL 12/11/19 Range/Units 06:28 AST (17-59) U/L Troponin I 1.720 H* (0.000-0.034) ng/mL Coagulation 12/10/19 12/11/19 Range/Units 21:50 06:28 PT 10.5 10.5 (9.0-12.0) sec APTT 23.1 29.9 (22.0-30.0) sec CBC 12/10/19 12/11/19 Range/Units 21:50 06:28 WBC 11.7 H 8.1 (3.8-10.6) k/uL RBC 5.22 5.08 (4.30-5.90) m/uL Hgb 17.3 16.5 (13.0-17.5) gm/dL Hct 51.7 50.8 (39.0-53.0) % Plt Count 228 184 (150-450) k/uL Comprehensive Metabolic Panel 12/10/19 Range/Units 21:50 Sodium 133 L (137-145) mmol/L Potassium 4.5 (3.5-5.1) mmol/L Chloride 102 (98-107) mmol/L Carbon Dioxide 23 (22-30) mmol/L BUN 15 (9-20) mg/dL Creatinine 0.84 (0.66-1.25) mg/dL Glucose 118 H (74-99) mg/dL Calcium 9.6 (8.4-10.2) mg/dL AST 47 (17-59) U/L ALT 44 (4-49) U/L Alkaline Phosphatase 59 (38-126) U/L Total Protein 6.8 (6.3-8.2) g/dL Albumin 4.2 (3.5-5.0) g/dL Current Medications Generic Name Dose Route Start Last Admin Trade Name Freq PRN Reason Stop Dose Admin Alprazolam 0.25 mg 12/11/19 08:46 Xanax PO Q6HR PRN Mild Anxiety Alprazolam 0.5 mg 12/11/19 08:46 Xanax PO Q6HR PRN Moderate Anxiety Atorvastatin Calcium 40 mg 12/11/19 21:00 Lipitor PO HS LANIE Heparin Sodium (Porcine) 0 unit 12/10/19 23:13 12/11/19 07:47 Heparin IV 4,000 unit PER PROTOCOL PRN Administration Low PTT Protocol Heparin Sodium/Sodium Chloride 250 mls @ 9.999 mls/hr 12/10/19 23:15 12/11/19 07:51 25,000 unit/ Sodium Chloride IV 12.19 units/kg/hr .Q24H LANIE 13.263 mls/hr Titration Protocol 9.19 UNITS/KG/HR Sodium Chloride 1,000 mls @ 75 mls/hr 12/11/19 00:15 12/11/19 05:05 Saline 0.9% IV 75 mls/hr .[id number] LANIE Administration Nitroglycerin/Dextrose 50 mg/ 250 mls @ 1.5 mls/hr 12/11/19 00:30 12/11/19 04:48 IV Solution IV 12/12/19 00:29 5 mcg/min .Q24H ONE 1.5 mls/hr Administration 5 MCG/MIN Sodium Chloride 1,000 ml/ IV 1,000 mls @ 109.4 mls/hr 12/11/19 08:46 Solution IV 12/11/19 17:54 .Q9H9M ONE 1 ML/KG/HR Lisinopril 20 mg 12/11/19 09:00 12/11/19 07:54 Zestril PO 20 mg DAILY LANIE Administration Metoprolol Tartrate 12.5 mg 12/11/19 09:00 12/11/19 07:54 Lopressor PO 12.5 mg BID LANIE Administration Morphine Sulfate 4 mg 12/11/19 00:07 12/11/19 04:44 Morphine Sulfate (Inj) IV 4 mg Q4HR PRN Administration Severe Pain Naloxone HCl 0.2 mg 12/11/19 00:07 Narcan IV Q2M PRN Opioid Reversal Nitroglycerin 0.4 mg 12/11/19 08:46 Nitrostat SUBLINGUAL Q5M PRN Chest Pain Intake and Output 12/10/19 12/11/19 12/11/19 22:59 06:59 14:59 Intake Total 45.995 30.83 Balance 45.995 30.83 Intake: Intake, IV Titration 45.995 30.83 Amount Heparin Sod,Pork in 0.45% 45.995 30.83 NaCl 25,000 unit In 0.45 % NaCl 1 250ml.bag @ 9.19 UNITS/KG/HR 9.999 mls/hr IV .Q24H [facility] Rx#: [id number] Other: Voiding Method Toilet Weight 108.862 kg 109.4 kg 12/11/19 06:28 12/10/19 21:50 EKG Interpretations (text) Sinus rhythm Assessment and Plan (1) Essential hypertension Current Visit: Yes Status: Acute Code(s): I10 - ESSENTIAL (PRIMARY) HYPERTENSION SNOMED Code(s): 25297175 (2) Acute non-ST elevation myocardial infarction (NSTEMI) Current Visit: Yes Status: Acute Code(s): I21.4 - NON-ST ELEVATION (NSTEMI) MYOCARDIAL INFARCTION SNOMED Code(s): 084995254 (3) History of ischemic heart disease Current Visit: Yes Status: Acute Code(s): Z86.79 - PERSONAL HISTORY OF OTHER DISEASES OF THE CIRCULATORY SYSTEM SNOMED Code(s): 897281782 Plan: Will proceed with cardiac catheterization. Meanwhile continue with heparin, aspirin, nitrates and beta blockers. Echocardiogram. Further recommendations depend upon clinical course
[2019-12-11] MEDS ORDERED: IV FLUID CONTINUATION 850 ML IV ONE (10:00)
[2019-12-11] MEDS ORDERED: VERAPAMIL 2.5 MG/ML 2 ML AMP ONE (10:05)
[2019-12-11] MEDS ORDERED: HEPARIN SODIUM 1,000 UN/ML (10ML VL) ONE (10:05)
[2019-12-11] MEDS ORDERED: LIDOCAINE 1% INJ 10MG/ML (20 ML MDV) ONE (10:05)
[2019-12-11] MEDS ORDERED: fentaNYL (PF) 50 MCG/ML 2 ML AMP ONE (10:06)
[2019-12-11] MEDS ORDERED: MIDAZOLAM 2 MG/2 ML VIAL IV ONE (10:16)
[2019-12-11] MEDS: fentaNYL (PF) 50 MCG/ML 2 ML AMP IV ONE ×2 (10:16→11:03)
[2019-12-11] MEDS ORDERED: LIDOCAINE 1% INJ 10MG/ML (20 ML MDV) SQ ONE (10:18)
[2019-12-11] MEDS ORDERED: VERAPAMIL SYRINGE (5 MG/10 ML) INTRAARTER ONE (10:20)
[2019-12-11] MEDS ORDERED: HEPARIN SODIUM 1,000 UN/ML (10ML VL) IV ONE ×2 (10:22→11:02)
--- NOTE | 2019-12-11 10:47 | P.CARDCATH ---
Date of Procedure: 12/11/19 Preoperative Diagnosis: Non-STEMI Postoperative Diagnosis: Total occlusion of the RCA Procedure(s) Performed: Left heart catheterization without left ventriculography Description of Procedure: HISTORY: This is a 59-year-old gentleman with history of ischemic or disease with a previous stent placement of the LAD and recent stent placement of the RCA in August in the setting of acute inferior wall ID. Patient came now with compl aints of recurrent chest pain starting Saturday. Last night he came around 8:00 PM with chest pain. His EKG did not reveal any acute changes but his cardiac enzymes are positive. Patient is advised to have a cardiac catheterization for definitive diagnosis. CONSENT:I have discussed the risks, benefits and alternative therapies for the above-mentioned procedure and for both sedation/analgesia as well as necessary blood product administration, if indicated, as they pertain to this patient. The patient has indicated understanding and acceptance of the risks and procedures discussed. PROCEDURE: Patient was brought to the lab in a fasting state. Patient was given some IV sedation. The right groin is infiltrated with lidocaine and right femoral artery was entered using Seldinger technique. A 6-Sudanese catheter was left in place and selective coronary arteriography and left ventriculography was performed. Patient tolerated the procedure well. Femoral angiogram was performed and Angio-Seal was applied for hemostasis. No immediate complications were noted and patient was transferred to [facility] in a stable condition Conscious Sedation: Versed 1mg Fentanyl 50 g Duration 23minutes HEMODYNAMICS: The aortic pressure is 104/63. The left ventricle end-diastolic pressure is 8-12. There was no gradient across the aortic valve SELECTIVE CORONARY ARTERIOGRAPHY: LEFT MAIN: Normal length and free of any significant occlusive disease THE LEFT ANTERIOR DESCENDING CORONARY ARTERY:. Fair caliber vessel giving rise to good-sized diagonal branch. Patent stent without any other significant occlusive disease THE LEFT CIRCUMFLEX AND IS CORONARY ARTERY:. Moderate caliber vessel giving rise to moderate caliber OM branch. Free of occlusive disease THE RIGHT CORONARY ARTERY:. Totally occluded proximal to the previous stent LEFT VENTRICULOGRAPHY: Not PERFORMED FINAL IMPRESSION: Total occlusion of the RCA PLAN:. Repeat stent placement the RCA to be done by Dr. Sykes PROGNOSIS: Guarded
[2019-12-11] MEDS ORDERED: IOPAMIDOL-370 100ML BTL INJ ONE ×2 (11:39→11:55)
[2019-12-11] MEDS ORDERED: TICAGRELOR 90 MG TAB ONE (11:43)
[2019-12-11] MEDS ORDERED: TICAGRELOR 90 MG TAB PO ONE (11:46)
--- NOTE | 2019-12-11 12:00 | ECHOF ---
Referral Reason:assess lvf MEASUREMENTS -------- HEIGHT: 152.4 cm WEIGHT: 109.3 kg BP: RVIDd: 4.0 cm (< 3.3) IVSd: 1.4 cm (0.6 - 1.1) LVIDd: 5.0 cm (3.9 - 5.3) LVPWd: 1.4 cm (0.6 - 1.1) IVSs: 1.6 cm LVIDs: 4.1 cm LVPWs: 1.9 cm LA Diam: 4.3 cm (2.7 - 3.8) LAESV Index (A-L): 32.24 ml/m Ao Diam: 3.0 cm (2.0 - 3.7) AV Cusp: 2.2 cm (1.5 - 2.6) MV EXCURSION: 19.371 mm (> 18.000) MV EF SLOPE: 93 mm/s (70 - 150) EPSS: 0.7 cm MV E Serg: 0.77 m/s MV DecT: 165 ms MV A Serg: 0.74 m/s MV E/A Ratio: 1.04 RAP: 5.00 mmHg RVSP: 12.14 mmHg FINDINGS -------- Sinus rhythm. This was a techncally difficult study with suboptimal views, , Lumason utilized for enhancement of im ages. The left ventricular size is normal. There is moderate concentric left ventricular hypertrophy. O verall left ventricular systolic function is mild-moderately impaired with, an EF between 40 - 45 %. Basal posterior LV wall motion is hypokinetic. Basal inferior LV wall motion is hypokinetic. Mid inferior LV wall motion is hypokinetic. Apical inferior LV wall motion is hypokinetic. The right ventricle is moderately enlarged. LA is midly dilated 29-33ml/m2. The right atrial size is normal. 5.0mg OF Lumason UTLIZED: 2 OR MORE WALL SEGMENTS NOT VISUALIZED. The aortic valve is trileaflet, and appears structurally normal. No aortic stenosis or regurgitation. The mitral valve is normal. Mild mitral regurgitation is present. The tricuspid valve appears structurally normal. Mild tricuspid regurgitation present. Right vent ricular systolic pressure is normal at < 35 mmHg. The pulmonic valve was not well visualized. There is no pulmonic regurgitation present. There is no pericardial effusion. CONCLUSIONS -------- 1. This was a techncally difficult study with suboptimal views, , Lumason utilized for enhancement of images. 2. There is moderate concentric left ventricular hypertrophy. 3. Overall left ventricular systolic function is mild-moderately impaired with, an EF between 40 - 45 %. 4. Basal posterior LV wall motion is hypokinetic. 5. Basal inferior LV wall motion is hypokinetic. 6. Mid inferior LV wall motion is hypokinetic. 7. Apical inferior LV wall motion is hypokinetic. 8. The right ventricle is moderately enlarged. 9. LA is midly dilated 29-33ml/m2. 10. 5.0mg OF Lumason UTLIZED: 2 OR MORE WALL SEGMENTS NOT VISUALIZED. 11. The aortic valve is trileaflet, and appears structurally normal. No aortic stenosis or regurgitat ion. 12. Mild mitral regurgitation is present. 13. Mild tricuspid regurgitation present. 14. There is no pericardial effusion. CONTRACT ENGINEER: Diandra Park RDCS
[2019-12-11] MEDS ORDERED: MAG HYDROX/AL HYDROX/SIMETH 30 ML CUP PO PRN (12:01)
[2019-12-11] MEDS ORDERED: ATROPINE SULFATE 0.1 MG/ML 10ML SYRINGE IV PRN (12:01)
[2019-12-11] MEDS ORDERED: RX INFO: IV CONTRAST WAS GIVEN 1 EACH MISC MISCELLANE PRN (12:01)
[2019-12-11] MEDS ORDERED: ZOLPIDEM 5 MG TAB PO PRN (12:01)
[2019-12-11] MEDS ORDERED: HYDROmorphone 1 MG/ML 1 ML SYRINGE IVP ONE (12:03)
[2019-12-11 15:42] VITALS: BMI 34.6
--- NOTE | 2019-12-11 16:13 | PTCA ---
PERCUTANEOUSTRANS CORORONARY ANGIOGRAPHY DATE OF SERVICE: 12/11/2019 PERFORMING PHYSICIAN: Jamel Apodaca M.D. PROCEDURE PERFORMED: 1. Aspiration thrombectomy from the right coronary artery. 2. Balloon angioplasty of the mid right coronary artery using a 4.0 x 15 mm balloon with reduction of stenosis from 100% to about 50% and ESTEVAN-2 flow. INDICATION: This is a 59-year-old gentleman with coronary artery disease and prior stenting of the RCA who was admitted to the hospital with chest discomfort and ruled in for acute non- ST-elevation myocardial infarction. He was seen by Dr. Carlson, who performed heart catheterization which showed occluded RCA in the mid portion just proximal to a stented segment. Percutaneous coronary intervention was advised. APPROACH: Right radial artery. COMPLICATIONS: None. LEVEL OF SEDATION: Moderate, with sedation length of 56 minutes. PROCEDURE DESCRIPTION: Please refer to diagnostic heart catheterization that was performed by Dr. Carlson. Anticoagulation was initiated using heparin; the patient was given weight-based heparin with continuous ACT monitoring throughout the procedure. The RCA was engaged using JR4 guide. I had difficulty crossing the occlusion in the mid RCA using a run-through wire, but finally I was able to get it using a Whisper wire with the backup support of over the wire balloon. The wire was advanced all the way to the distal right coronary artery. I did aspiration thrombectomy of the RCA in the mid portion using an [place] catheter. Balloon angioplasty initially was attempted using a 3.0 x 15 and then a 3.5 x 15 mm balloon, and I did balloon angioplasty of the mid RCA, but I was unable to restore flow. There was a lesion inside the stent the balloon did not cross and because of that I used a 1.5 mm balloon, and with that balloon I was able to cross the lesion and did balloon angioplasty. After that I was able to achieve balloon angioplasty of the whole mid RCA using a 4.0 mm balloon. I did an angiogram and that showed large thrombus involving the mid RCA extending to the distal right coronary artery. I attempted advancing a stent, and that was unsuccessful. Advancing the stent was unsuccessful even using a ashanti wire with a run-through wire. At that point, I decided to start the patient on Aggrastat overnight and bring the patient tomorrow for a second look to see if the clot was resolved from the mid and distal right coronary artery. POST-PROCEDURE MANAGEMENT: 1. ICU admission. 2. Aggrastat overnight. 3. Follow up with the patient. MMODL / IJN: [id number] /
--- NOTE | 2019-12-11 20:24 | P.HPIM ---
History of Present Illness H&P Date: 12/11/19 Chief Complaint: Chest pain History of presenting complaint: This is a very pleasant [address] Suman harper. Chronic stable medical conditions include GERD, primary osteoarthritis, ischemic cardiomyopathy EF 45%. Patient yesterday having episode of chest burning sensation going across the chest. Also felt a bit of a headache hearted of the wrist no shortness of breath no dizziness no lightheadedness. Last symptoms last for quite a while. Patient presented to ER. Patient ruled in for an acute NH. Patient did not radiate anywhere. Review of systems: GEN.: Tired EYES: None HEENT: None NECK: None RESPIRATORY: None CARDIOVASCULAR: As above GASTROINTESTINAL: None GENITOURINARY: None MUSCULOSKELETAL: None LYMPHATICS: None HEMATOLOGICAL: None PSYCHIATRY: None NEUROLOGICAL: None Past medical history to include: GERD, coronary artery with stent in August 2018 Social history: Working at [employer]. . Patient smoked a pack a day since the age of 15 stopped 3 months ago. Currently no alcohol Family history: Reviewed, noncontributory to presentation Physical examination: VITAL SIGNS: 97.8, 55, 18, 132/83, 94% on room air GENERAL: 34.6, reclining in bed, tired. EYES: Pupils equal. Conjunctiva normal. HEENT: External appearance of nose and ears normal, oral cavity grossly normal. NECK: JVD not raised; masses not palpable. HEART: First and second heart sounds are normal; no edema. LUNGS: Respiratory rate increased, decreased breath sounds. ABDOMEN: Soft, nontender, liver spleen not palpable, no masses palpable. PSYCH: Alert and oriented x3; mood and affect tiredl. NEUROLOGICAL: Cranial nerves grossly intact; no facial asymmetry, power and sensation grossly intact. LYMPHATICS: No lymph nodes palpable in the axilla and neck INVESTIGATIONS, reviewed in the clinical context: White count 11.7 hemoglobin 7.3 platelets 228 potassium 4.5 creatinine 0.84 Troponin I 1.5 1.9 1.7 COVID 19 PCR-not detected EKG tracing personally reviewed by me-sinus rhythm with some ST segment depression in lead 1 aVL and V3 to V6 Chest x-ray film personally reviewed by me-cardiomegaly, questionable venous prominence Computed tomography scan of the brain-unremarkable 2-D echocardiogram-concentric LVH, wall motion operability especially in the inferior wall, EF 40-45% Assessment: -Acute non-Q-wave myocardial infarction -Coronary artery disease with prior stent to the RCA -Obesity BMI 34.6 -GERD -Primary osteoarthritis -Chronic congestive heart failure from systolic dysfunction EF 40-45% Plan: Patient was taken to the cardiac can labeler and patient was found to have total occlusion of the RCA. Patient had been on IV heparin. Home medications resumed. Including aspirin. Saw the patient this afternoon. Patient late in the day supposed to go back and have further stenting to the RCA. Care was discussed with the patient. Questions were answered Past Medical History Past Medical History: GERD/Reflux, Myocardial Infarction (NH) Last Myocardial Infarction Date:: 08/07/2018 History of Any Multi-Drug Resistant Organisms: None Reported Past Surgical History: Heart Catheterization With Stent Past Anesthesia/Blood Transfusion Reactions: No Reported Reaction Date of Last Stent Placement:: 08/07/2018 Past Psychological History: No Psychological Hx Reported Smoking Status: Current every day smoker Medications and Allergies Home Medications Medication Instructions Recorded Confirmed Type Lisinopril [Zestril] 20 mg PO DAILY #90 tab 08/09/18 12/10/19 Rx Nitroglycerin Sl Tabs [Nitrostat] 0.4 mg SUBLINGUAL Q5M PRN #1 bottle 08/09/18 12/10/19 Rx Atorvastatin [Lipitor] 40 mg PO HS 12/10/19 12/10/19 History Metoprolol Tartrate [Lopressor] 12.5 mg PO BID 12/10/19 12/10/19 History Allergies Allergy/AdvReac Type Severity Reaction Status Date / Time No Known Allergies Allergy Verified 12/10/19 23:02 Physical Exam Vitals: Vital Signs Temp Pulse Pulse Resp BP BP Pulse Ox 12/11/19 08:00 55 L 18 12/11/19 07:58 97.9 F 55 L 18 115/63 94 L 12/11/19 04:00 97.7 F 53 L 17 103/67 93 L 12/11/19 00:56 56 L 19 123/82 96 12/11/19 00:32 97.8 F 60 17 127/86 96 12/11/19 00:18 60 18 126/85 96 12/10/19 23:00 58 L 17 124/83 96 12/10/19 21:31 97.8 F 55 L 18 132/83 94 L Intake and Output 12/10/19 12/11/19 12/11/19 22:59 06:59 14:59 Intake Total 45.995 30.83 Balance 45.995 30.83 Intake: Intake, IV Titration 45.995 30.83 Amount Heparin Sod,Pork in 0.45% 45.995 30.83 NaCl 25,000 unit In 0.45 % NaCl 1 250ml.bag @ 9.19 UNITS/KG/HR 9.999 mls/hr IV .Q24H [facility] Rx#: [id number] Other: Voiding Method Toilet Toilet Weight 108.862 kg 109.4 kg Results CBC & Chem 7: 12/11/19 06:28 12/10/19 21:50 Labs: Abnormal Lab Results - Last 24 Hours (Table) 12/10/19 12/10/19 12/10/19 Range/Units 21:50 21:50 21:50 WBC 11.7 H (3.8-10.6) k/uL Neutrophils # 8.3 H (1.3-7.7) k/uL Sodium 133 L (137-145) mmol/L Glucose 118 H (74-99) mg/dL Total Bilirubin 1.4 H (0.2-1.3) mg/dL Troponin I 1.520 H* (0.000-0.034) ng/mL 12/11/19 12/11/19 Range/Units 02:45 06:28 WBC (3.8-10.6) k/uL Neutrophils # (1.3-7.7) k/uL Sodium (137-145) mmol/L Glucose (74-99) mg/dL Total Bilirubin (0.2-1.3) mg/dL Troponin I 1.900 H* 1.720 H* (0.000-0.034) ng/mL Thrombosis Risk Factor Assmnt - Choose All That Apply Any of the Below Risk Factors Present?: Yes Each Factor Represents 1 point: Acute NH Other Risk Factors: Yes Each Risk Factor Represents 2 Points: Age 61-74 years Other congenital or acquired thrombophilia - If yes, enter type in comment: No Thrombosis Risk Factor Assessment Total Risk Factor Score: 3 Thrombosis Risk Factor Assessment Level: Moderate Risk
[2019-12-11] MEDS: ATORVASTATIN 40 MG TAB PO SCH (21:11)
[2019-12-11] MEDS: TICAGRELOR 90 MG TAB PO SCH (21:11)
[2019-12-11] MEDS: TIROFIBAN 12.5MG-250ML NS 250 ML IV SCH (21:12)
[2019-12-12] MEDS: METOPROLOL TARTRATE 12.5 MG TAB PO SCH ×2 (06:30→20:22)
[2019-12-12] MEDS: LISINOPRIL 20 MG TAB PO SCH (06:45)
[2019-12-12 06:52] LABS: Basophils % (A) 0 %; Eosinophils # (A) 0.2 k/uL (0-0.7); Eosinophils % (A) 2 %; HCT 48.7 % (39.0-53.0); HGB 16.3 gm/dL (13.0-17.5); Lymphocytes # (A) 1.1 k/uL (1.0-4.8); Lymphocytes % (A) 13 %; MCH 33.8 pg (25.0-35.0); MCHC 33.4 g/dL (31.0-37.0); MCV 101.2 fL (80.0-100.0); Monocytes # (A) 0.5 k/uL (0-1.0); Monocytes % (A) 6 %; Neutrophils # (A) 6.6 k/uL (1.3-7.7); Neutrophils % (A) 78 %; Platelet Count 194 k/uL (150-450); RBC 4.81 m/uL (4.30-5.90); RDW 12.1 % (11.5-15.5); WBC 8.5 k/uL (3.8-10.6)
[2019-12-12 06:56] LABS: African American GFR (CKD) >90 (>60 ml/min/1.73 sqM); Anion Gap 9 mmol/L; Blood Urea Nitrogen 14 mg/dL (9-20); Calcium 9.2 mg/dL (8.4-10.2); Carbon Dioxide 23 mmol/L (22-30); Chloride 103 mmol/L (98-107); Glucose 123 mg/dL (74-99); Non-African American GFR(CKD) >90 (>60 ml/min/1.73 sqM); Potassium 4.7 mmol/L (3.5-5.1); Sodium 135 mmol/L (137-145)
[2019-12-12 07:05] LABS: Prothrombin Time 10.1 sec (9.0-12.0)
[2019-12-12] MEDS: ASPIRIN 81 MG PO SCH (07:46)
[2019-12-12] MEDS: TICAGRELOR 90 MG TAB PO SCH ×2 (07:46→20:22)
[2019-12-12] MEDS ORDERED: VERAPAMIL 2.5 MG/ML 2 ML AMP ONE (08:02)
[2019-12-12] MEDS ORDERED: LIDOCAINE 1% INJ 10MG/ML (20 ML MDV) ONE (08:03)
[2019-12-12] MEDS ORDERED: LIDOCAINE 1% INJ 10MG/ML (20 ML MDV) SQ ONE (08:23)
[2019-12-12] MEDS ORDERED: MIDAZOLAM 2 MG/2 ML VIAL IVP ONE (08:23)
[2019-12-12] MEDS ORDERED: HYDROmorphone 1 MG/ML 1 ML SYRINGE ONE (08:28)
[2019-12-12] MEDS ORDERED: HYDROmorphone 1 MG/ML 1 ML SYRINGE IVP ONE (08:30)
[2019-12-12] MEDS ORDERED: IOPAMIDOL-370 100ML BTL INJ ONE (08:51)
[2019-12-12] MEDS ORDERED: IV FLUID CONTINUATION 600 ML IV ONE (08:52)
[2019-12-12] MEDS ORDERED: RX INFO: IV CONTRAST WAS GIVEN 1 EACH MISC MISCELLANE PRN (08:55)
[2019-12-12] MEDS ORDERED: SODIUM CHLORIDE 0.9% 1,000 ML IV SCH (09:00)
[2019-12-12] MEDS: SODIUM CHLORIDE 0.9% 1,000 ML IV SCH (09:16)
[2019-12-12] MEDS: TIROFIBAN 12.5MG-250ML NS 250 ML IV SCH ×2 (09:16→09:17)
[2019-12-12] MEDS: APIXABAN 2.5 MG TABLET PO SCH ×2 (09:17→20:22)
--- NOTE | 2019-12-12 10:11 | CC ---
CARDIAC CATHETERIZATION REPORT DATE OF SERVICE: December 12, 2019 PERFORMING PHYSICIAN: Jamel Apodaca MD. PROCEDURE PERFORMED: Selective right coronary angiogram. INDICATION: This is a very pleasant 59-year-old gentleman who sees Dr. Carlson in the office as an outpatient who was admitted to the hospital with chest discomfort and ruled in for acute [id number] myocardial infarction. He underwent heart catheterization by Dr. Carlson and was found to have occluded RCA in the midportion. Yesterday, he underwent crossing the lesion but the patient was found to have large thrombus involving the RCA in the mid and distal portion. Aspiration thrombectomy was attempted and in spite of that the clot was large. The patient was started on Aggrastat overnight and he was brought today for 2nd look. COMPLICATION: None. LEVEL OF SEDATION: Moderate with sedation length of 25 minutes. PROCEDURE DESCRIPTION: After obtaining informed consent, the patient was brought to the cardiac laboratory geneticist. The right common femoral artery was cannulated using micropuncture technique and a micropuncture wire passed easily. Then I placed a 6-Armenian sheath at the right common femoral artery. I did selective right coronary angiogram using an Amplatzer 1 guiding catheter. Supposedly we were going to intervene on the RCA. The procedure was completed at that point. SELECTIVE CORONARY ANGIOGRAM: The right coronary artery is a large caliber vessel and is a dominant vessel. The RCA in the proximal portion is ectatic. The mid to distal RCA has clot which continues to be large, but the flow in the RCA appeared to be ESTEVAN-3 flow. The distal RCA is angiographically normal and bifurcates into PDA and PLV branches both appeared to be angiographically normal. CONCLUSION: Large residual thrombus was identified in the mid and mid to distal right coronary artery, but with ESTEVAN-3 flow. POSTPROCEDURE MANAGEMENT: I decided to start the patient on oral anticoagulation at this point. He was chest pain free. The flow in the RCA was ESTEVAN-[address] or T-wave abnormalities. Maybe down the line, he will be brought for a 3rd look in about 4-6 weeks to assess the status of the right coronary artery. MMODL / IJN: [id number] /
[2019-12-12] MEDS: MORPHINE SULFATE 4 MG/ML SYRINGE IV PRN (10:58)
[2019-12-12] MEDS: ATORVASTATIN 40 MG TAB PO SCH (20:22)
--- NOTE | 2019-12-12 22:22 | P.PN ---
Progress Note - Text Progress Note Date: 12/12/19 Chief Complaint: Chest pain History of presenting complaint: This is a very pleasant [address] Suman harper. Chronic stable medical conditions include GERD, primary osteoarthritis, ischemic cardiomyopathy EF 45%. Patient yesterday having episode of chest burning sensation going across the chest. Also felt a bit of a headache hearted of the wrist no shortness of breath no dizziness no lightheadedness. Last symptoms last for quite a while. Patient presented to ER. Patient ruled in for an acute AR. Patient did not radiate anywhere. Admitted with acute non-Q-wave AR. Patient's taken to the cardiac cath laboratory Dr. Apodaca he did aspiration thrombectomy. In spite of balloon angioplasty flow was not restored. Placement of the stent was unsuccessful. Today-patient's taken back to the cardiac catheterization lab. Aspiration thrombectomy was attempted. Often large thrombus. No stent was placed. Dr. Apodaca reported that patient have to be brought back for a third stroke in 4-6 weeks. Postprocedure this morning patient is having some discomfort in the left lower rib cage. No shortness breath. Review of systems: Was done for constitutional, cardiovascular, GI, pulmonary. relevant finding as above Active Medications Al Hydroxide/Mg Hydroxide (Maalox) 30 ml PO Q4HR PRN PRN Reason: Heartburn Alprazolam (Xanax) 0.25 mg PO Q6HR PRN PRN Reason: Mild Anxiety Alprazolam (Xanax) 0.5 mg PO Q6HR PRN PRN Reason: Moderate Anxiety Apixaban (Eliquis) 2.5 mg PO BID [facility] Last Admin: 12/12/19 20:22 Dose: 2.5 mg Documented by: Aspirin (Aspirin) 81 mg PO DAILY [facility] Last Admin: 12/12/19 07:46 Dose: 81 mg Documented by: Atorvastatin Calcium (Lipitor) 40 mg PO HS [facility] Last Admin: 12/12/19 20:22 Dose: 40 mg Documented by: Atropine Sulfate (Atropine) 0.5 mg IV ONCE PRN PRN Reason: Symptomatic Bradycardia Lisinopril (Zestril) 20 mg PO DAILY [facility] Last Admin: 12/12/19 06:45 Dose: Not Given Documented by: Metoprolol Tartrate (Lopressor) 12.5 mg PO BID [facility] Last Admin: 12/12/19 20:22 Dose: 12.5 mg Documented by: Miscellaneous Information (Rx Info: Iv Contrast Was Given) 1 each MISCELLANE DAILY PRN PRN Reason: Per Protocol Stop: 12/13/19 12:01 Miscellaneous Information (Rx Info: Iv Contrast Was Given) 1 each MISCELLANE DAILY PRN PRN Reason: Per Protocol Stop: 12/14/19 08:56 Morphine Sulfate (Morphine Sulfate (Inj)) 4 mg IV Q4HR PRN PRN Reason: Severe Pain Last Admin: 12/12/19 10:58 Dose: 4 mg Documented by: Naloxone HCl (Narcan) 0.2 mg IV Q2M PRN PRN Reason: Opioid Reversal Nitroglycerin (Nitrostat) 0.4 mg SUBLINGUAL Q5M PRN PRN Reason: Chest Pain Ticagrelor (Brilinta) 90 mg PO BID [facility] Last Admin: 12/12/19 20:22 Dose: 90 mg Documented by: Zolpidem Tartrate (Ambien) 5 mg PO HS PRN PRN Reason: Insomnia Physical examination: VITAL SIGNS: 97.5, 57, 18, 159/82, 94% room air GENERAL: Sitting up, comfortable EYES: Pupils equal. Conjunctiva normal. HEENT: External appearance of nose and ears normal, oral cavity grossly normal. NECK: JVD not raised; masses not palpable. HEART: First and second heart sounds are normal; no edema. LUNGS: Respiratory rate increased, decreased breath sounds. ABDOMEN: Soft, nontender, liver spleen not palpable, no masses palpable. PSYCH: Alert and oriented x3; mood and affect tiredl. INVESTIGATIONS, reviewed in the clinical context: White count 8.5 hemoglobin 6.3 potassium 4.7 creatinine 0.7 to Previous testing Troponin I 1.5 1.9 1.7 COVID 19 PCR-not detected EKG tracing personally reviewed by me-sinus rhythm with some ST segment depression in lead 1 aVL and V3 to V6 Chest x-ray film personally reviewed by me-cardiomegaly, questionable venous prominence Computed tomography scan of the brain-unremarkable 2-D echocardiogram-concentric LVH, wall motion operability especially in the inferior wall, EF 40-45% Assessment: -Acute non-Q-wave myocardial infarction -Cardiac catheterization showing a large thrombus in the RCA. Attempted aspiration thrombectomy. On December 10. On December 11 Second Look was attempted for the same. Unsuccessful placement of a stent. With the clots still present. Plan to have a third look in about 4-6 weeks. -Coronary artery disease with prior stent to the RCA -Obesity BMI 34.6 -GERD -Primary osteoarthritis -Chronic congestive heart failure from systolic dysfunction EF 40-45% Plan: Continue current medication treatment plan including aspirin, Brilinta. Discussed with the patient. Patient also start eliquis by cardiology. Follow
[2019-12-13 06:25] LABS: Basophils % (A) 0 %; Eosinophils # (A) 0.2 k/uL (0-0.7); Eosinophils % (A) 3 %; HCT 49.8 % (39.0-53.0); HGB 15.9 gm/dL (13.0-17.5); Lymphocytes # (A) 0.9 k/uL (1.0-4.8); Lymphocytes % (A) 13 %; MCH 32.1 pg (25.0-35.0); MCHC 31.9 g/dL (31.0-37.0); MCV 100.6 fL (80.0-100.0); Mean Platelet Volume 7.3; Monocytes # (A) 0.5 k/uL (0-1.0); Monocytes % (A) 7 %; Neutrophils # (A) 5.3 k/uL (1.3-7.7); Neutrophils % (A) 76 %; Platelet Count 186 k/uL (150-450); RBC 4.96 m/uL (4.30-5.90); RDW 12.1 % (11.5-15.5); WBC 6.9 k/uL (3.8-10.6)
[2019-12-13 06:42] LABS: Prothrombin Time 10.6 sec (9.0-12.0)
[2019-12-13] MEDS: APIXABAN 2.5 MG TABLET PO SCH ×2 (09:01→21:11)
[2019-12-13] MEDS: LISINOPRIL 20 MG TAB PO SCH (09:01)
[2019-12-13] MEDS: METOPROLOL TARTRATE 12.5 MG TAB PO SCH ×2 (09:01→21:10)
[2019-12-13] MEDS: ASPIRIN 81 MG PO SCH (09:01)
[2019-12-13] MEDS: TICAGRELOR 90 MG TAB PO SCH ×2 (09:01→21:11)
--- NOTE | 2019-12-13 13:40 | P.PN ---
Subjective Progress Note Date: 12/13/19 This is a 59-year-old gentleman with history of ischemic heart disease and stent placement of the left anterior descending coronary artery done several years ago who had stent placement of the RCA in August of this year in the setting of acute inferior wall [place]. Patient has been doing fairly well since then. About 4 days ago patient had a burning chest discomfort and some headache and also some discomfort in the both the wrist. It lasted for a couple of hours and then subsided. Last night patient had similar pain again discarded as a burning sensation across the chest associated some headache and also discomfort in the both wrists. He took couple of nitroglycerin with partial relief. In the em ergency room patient was given morphine and Tylenol along with nitroglycerin with relief of pains. His EKG did not reveal any acute changes. However troponin values are abnormal, suggestive of possible unstable angina. In view of his previous history and abnormal enzymes, patient is advised to have a cardiac catheterization for definitive diagnosis. Patient is fully aware of the risks and benefits of the procedure 12/12: On December 10, patient underwent heart catheterization that showed occluded RCA and the midportion just proximal to a stented segment. Dr. Apodaca performed aspiration thrombectomy from the midportion of right coronary artery, balloon angioplasty of the mid right coronary artery but there was a large thrombus involving the mid RCA extending to the distal right coronary artery which could not be stented. He was placed in the intensive care unit and started on Aggrastat overnight. Yesterday, patient went back to the medical lab specialist for evaluation but he had a large residual thrombus in the mid to distal RCA and Dr. Apodaca decided he would start the patient on eliquis and reevaluate in 4 weeks. Patient states he is feeling much better from yesterday. He denies any chest pain or shortness of breath. He states he has been ambulating in his room without any lightheadedness or dizziness. He verbalizes frustration that he was taken off of Plavix recently and then developed blockage. Attempted to answer his questions as this would have been a normal timeframe to stop Plavix. Patient has been afebrile, heart rate 63, blood pressure 142/86, pulse ox 93% on room air. Echocardiogram reveals EF of 40-45% with moderate concentric left hypertrophy, LV wall motion is hypokinetic, mild mitral regurgitation, mild tricuspid regurgitation. Physical exam GENERAL EXAM: Patient is alert and oriented and doesn't appear to be in any acute distress HEENT: Normocephalic. Normal reaction of pupils, equal size, normal range of extraocular motion. Oral mucous membranes are moist. NECK: No masses, no nuchal rigidity. CHEST: No chest wall deformity. LUNGS: Equal air entry with no crackles or wheeze. HEART: S1 and S2 normal with no audible mumurs or gallops. Regular rhythm, femorals equal on both sides.. ABDOMEN: No hepatosplenomegaly, normal bowel sounds, no guarding or rigidity. SKIN: No rashes CENTRAL NERVOUS SYSTEM: No focal deficits. EXTREMITIES: No cyanosis, clubbing or edema. Assessment Acute non-ST elevated myocardial infarction Thrombus RCA Hypertension Ischemic heart disease Plan Continue eliquis 2.5 mg twice daily, aspirin 81 mg daily, Dilantin 90 mg twice daily Continue lisinopril 20 mg daily Monitor patient overnight and anticipate discharge home tomorrow Patient will follow up with Dr. Carlson in the office Nurse practitioner note has been reviewed, I agree with documented findings and plan of care. Patient was seen and examined. Objective - Vital Signs Vital signs: Vital Signs Temp 97.4 F L 12/13/19 07:34 Pulse 63 12/13/19 08:00 Resp 18 12/13/19 08:00 BP 142/86 12/13/19 07:34 Pulse Ox 93 L 12/13/19 07:34 Intake & Output 12/12/19 12/13/19 12/13/19 18:59 06:59 18:59 Intake Total 700 540 240 Output Total 500 1300 Balance 200 -760 240 Weight 109.2 kg Intake: IV 100 Intake, IV Titration 600 Amount Sodium Chloride 0.9% 1, 600 000 ml @ 75 mls/hr IV . [id number] [facility] Rx#:[id number] Oral 540 240 Output: Urine 500 1300 Other: Voiding Method Toilet Toilet Toilet - Labs CBC & Chem 7: 12/13/19 05:59 12/12/19 06:22 Labs: Abnormal Lab Results - Last 24 Hours (Table) 12/13/19 Range/Units 05:59 MCV 100.6 H (80.0-100.0) fL Lymphocytes # 0.9 L (1.0-4.8) k/uL
--- NOTE | 2019-12-13 15:12 | CONS ---
CONSULTATION This is a 59-year-old gentleman I am seeing for the first time, as the weekend rounder, who was admitted on 12/11/2019 with chest pain and had acute non ST-segment elevation myocardial infarction. The patient has known coronary artery disease with stenting of the LAD several years ago and had a stent in the right coronary artery. The patient on this admission and non ST-segment elevation MO and underwent cardiac catheterization and had an occluded right coronary artery. He underwent intervention at that time but because of the significant clot burden, he was taken back for cardiac catheterization yesterday by Dr. Apodaca, the furnace maintenance, after the the patient received Aggrastat overnight. He still had a large residual thrombus in the mid and mid to distal RCA with good ESTEVAN-3 flow, due to which he was advised continued medical therapy. At the time of my evaluation, this morning, the patient is chest pain free. An echocardiogram on this admission revealed an ejection fraction of 40-45% with hypokinesis involving the inferior wall and an enlarged right ventricle. The patient is currently on Xanax, Eliquis, aspirin, Lipitor, Zestril, Lopressor and Brilinta. He will continue with these medications. EXAM: Heart rate is 53 beats per minute. Blood pressure is 136/97, respiratory is 18. Chest exam reveals good air entry bilaterally. Heart exam reveals first and second heart sounds. No gallop. No murmur. Abdomen is soft. Exam of extremities did not reveal any edema. Peripheral pulses are felt. ASSESSMENT: Acute non ST-segment elevation myocardial infarction, status post catheterization and repeat catheterization to look at the thrombus in the right coronary artery. PLAN: Plan at this stage is to continue with the current medical therapy. The patient is chest pain free, hemodynamically stable. I will continue the current aggressive medical therapy. MMODL / IJN: [id number] /
--- NOTE | 2019-12-13 17:43 | P.PN ---
Progress Note - Text Progress Note Date: 12/13/19 Chief Complaint: Chest pain History of presenting complaint: This is a very pleasant [address] Suman harper. Chronic stable medical conditions include GERD, primary osteoarthritis, ischemic cardiomyopathy EF 45%. Patient yesterday having episode of chest burning sensation going across the chest. Also felt a bit of a headache hearted of the wrist no shortness of breath no dizziness no lightheadedness. Last symptoms last for quite a while. Patient presented to ER. Patient ruled in for an acute MS. Patient did not radiate anywhere. Admitted with acute non-Q-wave MS. Patient's taken to the cardiac cath laboratory Dr. Apodaca he did aspiration thrombectomy. In spite of balloon angioplasty flow was not restored. Placement of the stent was unsuccessful. taken back to the cardiac catheterization lab. Aspiration thrombectomy was attempted. Often large thrombus. No stent was placed. Dr. Apodaca reported that patient have to be brought back for a third attempt in 4-6 weeks Today-sitting up in a chair. No chest pain. Breathing stable. Did walk about. Review of systems: Was done for constitutional, cardiovascular, GI, pulmonary. relevant finding as above Active Medications Al Hydroxide/Mg Hydroxide (Maalox) 30 ml PO Q4HR PRN PRN Reason: Heartburn Alprazolam (Xanax) 0.25 mg PO Q6HR PRN PRN Reason: Mild Anxiety Alprazolam (Xanax) 0.5 mg PO Q6HR PRN PRN Reason: Moderate Anxiety Apixaban (Eliquis) 2.5 mg PO BID [facility] Last Admin: 12/13/19 09:01 Dose: 2.5 mg Documented by: Aspirin (Aspirin) 81 mg PO DAILY [facility] Last Admin: 12/13/19 09:01 Dose: 81 mg Documented by: Atorvastatin Calcium (Lipitor) 40 mg PO HS [facility] Last Admin: 12/12/19 20:22 Dose: 40 mg Documented by: Atropine Sulfate (Atropine) 0.5 mg IV ONCE PRN PRN Reason: Symptomatic Bradycardia Lisinopril (Zestril) 20 mg PO DAILY [facility] Last Admin: 12/13/19 09:01 Dose: 20 mg Documented by: Metoprolol Tartrate (Lopressor) 12.5 mg PO BID [facility] Last Admin: 12/13/19 09:01 Dose: 12.5 mg Documented by: Miscellaneous Information (Rx Info: Iv Contrast Was Given) 1 each MISCELLANE DAILY PRN PRN Reason: Per Protocol Stop: 12/14/19 08:56 Morphine Sulfate (Morphine Sulfate (Inj)) 4 mg IV Q4HR PRN PRN Reason: Severe Pain Last Admin: 12/12/19 10:58 Dose: 4 mg Documented by: Naloxone HCl (Narcan) 0.2 mg IV Q2M PRN PRN Reason: Opioid Reversal Nitroglycerin (Nitrostat) 0.4 mg SUBLINGUAL Q5M PRN PRN Reason: Chest Pain Ticagrelor (Brilinta) 90 mg PO BID [facility] Last Admin: 12/13/19 09:01 Dose: 90 mg Documented by: Zolpidem Tartrate (Ambien) 5 mg PO HS PRN PRN Reason: Insomnia Physical examination: VITAL SIGNS: 97.9, 53, 16, 136/97, 93% room air GENERAL: Sitting up, comfortable EYES: Pupils equal. Conjunctiva normal. HEENT: External appearance of nose and ears normal, oral cavity grossly normal. NECK: JVD not raised; masses not palpable. HEART: First and second heart sounds are normal; no edema. LUNGS: Respiratory rate increased, decreased breath sounds. ABDOMEN: Soft, nontender, liver spleen not palpable, no masses palpable. PSYCH: Alert and oriented x3; mood and affect tiredl. INVESTIGATIONS, reviewed in the clinical context: White count 6.9 hemoglobin 15.9 platelets 186 Previous testing Troponin I 1.5 1.9 1.7 COVID 19 PCR-not detected EKG tracing personally reviewed by me-sinus rhythm with some ST segment depression in lead 1 aVL and V3 to V6 Chest x-ray film personally reviewed by me-cardiomegaly, questionable venous prominence Computed tomography scan of the brain-unremarkable 2-D echocardiogram-concentric LVH, wall motion operability especially in the inferior wall, EF 40-45% Assessment: -Acute non-Q-wave myocardial infarction -Cardiac catheterization showing a large thrombus in the RCA. Attempted aspiration thrombectomy. On December 10. On December 11 Second Look was attempted for the same. Unsuccessful placement of a stent. With the clots still present. Plan to have a third look in about 4-6 weeks. -Coronary artery disease with prior stent to the RCA -Obesity BMI 34.6 -GERD -Primary osteoarthritis -Chronic congestive heart failure from systolic dysfunction EF 40-45% Plan: -Continue current medication treatment plan. Encouraged to ambulate. Hopefully discharge tomorrow when with cardiology.
[2019-12-13] MEDS ORDERED: ACETAMINOPHEN TAB 325 MG TAB PO PRN (18:48)
[2019-12-13] MEDS: ATORVASTATIN 40 MG TAB PO SCH (21:11)
[2019-12-14] MEDS: LISINOPRIL 20 MG TAB PO SCH (08:20)
[2019-12-14] MEDS: ASPIRIN 81 MG PO SCH (08:20)
[2019-12-14] MEDS: TICAGRELOR 90 MG TAB PO SCH (08:20)
[2019-12-14] MEDS: APIXABAN 2.5 MG TABLET PO SCH (08:20)
[2019-12-14] MEDS: METOPROLOL TARTRATE 12.5 MG TAB PO SCH (08:20)
[2019-12-14 09:32] VITALS: BP 122/78; PULSE 60; RESP 18; TEMP 98
--- NOTE | 2019-12-14 14:34 | PN ---
PROGRESS NOTE Mr. Dela Cruz is in sinus, comfortable, resting. No chest pain. His groin is clean and dry. Vitals are stable. S1-S2 heard normally, short systolic murmur noted. Lungs are clear. Abdomen and lower extremity exam unchanged. Plan is to continue current medications, increase activity and possible discharge and he will need to be reevaluated by Dr. Carlson or Dr. Apodaca. He has a thrombus. He has a lot of clot in the right coronary, but the flow has improved a lot after 24 hours of Aggrastat. We will continue combination of Brilinta, aspirin, and Eliquis which has put him at risk for bleeding but he is aware of this. He will be discharged hopefully today and see Dr. Carlson in a week for a possible restudy to check patency of RCA. MMKATHY / YARELI: [id number] /
--- NOTE | 2019-12-14 16:51 | P.DS ---
Providers Date of admission: 12/11/19 00:07 Attending physician: Enoc Ascencio Consults: 12/11/19 00:08 Consult Physician Urgent Consulting Provider: Cardiology Jaret Consult Reason/Comments: nstemi Do you want consulting provider notified?: Already Contacted 12/11/19 12:01 Consult Physician Routine Consulting Provider: Andrez Raygoza Consult Reason/Comments: Post Interventional patient Do you want consulting provider notified?: Already Contacted Primary care physician: Suman Gaspar [facility] Course: Diagnoses: -Acute non-Q-wave myocardial infarction -s/p Cardiac catheterization showing a large thrombus in the RCA. tried aspiration thrombectomy x2 On December 10 and On December 11 ,RCA still blocked. Patient will be discharged on Eliquis with plan to repeat cardiac cath in 4-6 weeks -Ischemic cardiomyopathy with ejection fraction 40-45%, chronic -Coronary artery disease with prior stent to the RCA -Obesity BMI 34.6 -GERD -Primary osteoarthritis Hospital course: This is a very pleasant [address] Suman gaspar. Chronic stable medical conditions include GERD, primary osteoarthritis, ischemic cardiomyopathy EF 45%. Patient yesterday having episode of chest burning sensation going across the chest. He was admitted with acute non-Q-wave SD. Patient's taken to the cardiac cath laboratory twice with Dr. Apodaca, aspiration thrombectomy was attempted with no success to open the artery. Therapist'S Assistant recommended tentatively patient with the liquids 2.5 mg twice daily on the top of his aspirin and Brillinta , with recommendation to repeat cardiac cath in 4-6 weeks. Currently patient is chest pain-free, no dyspnea. No change in urine or bowel habits. No fever. No other complaints. No need for home oxygen. Patient was cleared for discharge by machinist mate pt will be discharged on Eliquis , asprin and Brilinta as per machinist mate recommendation who discussed with pt risks of bleeding and he agrees with it. benefits are more than risks Problems and management plan were discussed with the patient and he verbalized understanding and acceptance Patient was found stable and can be discharged home however he needs follow-up as an outpatient. Patient was instructed to follow up with PCP Dr. Maurer within one week and patient agrees. Patient also was instructed to follow up with Dr. Carlson in 1-2 weeks and he agrees on medical point, pt agrees with appoi ntment made for him with cardiology team per staff Gen: patient is a AAOx3, no distress CVS: S1-S2, RRR, no murmur Lungs: B/L CTA, no wheezing Abdomen: soft, no distention, no tenderness, positive bowel sounds Extremity: no leg edema or induration Time spent more than 35 minutes Patient Condition at Discharge: Serious Plan - Discharge Summary Discharge Rx Participant: No New Discharge Prescriptions: New Aspirin 81 mg PO DAILY #30 chew Ticagrelor [Brilinta] 90 mg PO BID #60 tab Apixaban [Eliquis] 2.5 mg PO BID #60 tablet Continue Nitroglycerin Sl Tabs [Nitrostat] 0.4 mg SUBLINGUAL Q5M PRN #1 bottle PRN Reason: Chest Pain Lisinopril [Zestril] 20 mg PO DAILY #90 tab Atorvastatin [Lipitor] 40 mg PO HS Metoprolol Tartrate [Lopressor] 12.5 mg PO BID Discharge Medication List Lisinopril [Zestril] 20 mg PO DAILY #90 tab 08/09/18 [Rx] Nitroglycerin Sl Tabs [Nitrostat] 0.4 mg SUBLINGUAL Q5M PRN #1 bottle 08/09/18 [Rx] Atorvastatin [Lipitor] 40 mg PO HS 12/10/19 [History] Metoprolol Tartrate [Lopressor] 12.5 mg PO BID 12/10/19 [History] Apixaban [Eliquis] 2.5 mg PO BID #60 tablet 12/14/19 [Rx] Aspirin 81 mg PO DAILY #30 chew 12/14/19 [Rx] Ticagrelor [Brilinta] 90 mg PO BID #60 tab 12/14/19 [Rx] Follow up Appointment(s)/Referral(s): Suman Gaspar MD [Primary Care Provider] - 1-2 days Jane Carlson MD [STAFF PHYSICIAN] - 12/22/19 3:15 pm Activity/Diet/Wound Care/Special Instructions: pt qualifies for $5/mo Brilinta and $10/mo eliquis- coupons provided to pt Discharge Disposition: HOME SELF-CARE
== END 2019-12-14 15:18 | disposition home or self-care (01) | DRG 251 ==
LOC: EC 21:28 → 3SCARD 12-11 00:07
PROVIDERS: ADMIT Hospitalist; ATTEND Hospitalist
PROC: 02703ZZ Dilation of Coronary Artery, One Artery, Percutaneous Approach (ICD-10-PCS; principal; 2019-12-11 10:30)
PROC: 02C03ZZ Extirpation of Matter from Coronary Artery, One Artery, Percutaneous Approach (ICD-10-PCS; principal; 2019-12-11 10:30)
PROC: B2111ZZ Fluoroscopy of Multiple Coronary Arteries using Low Osmolar Contrast (ICD-10-PCS; 2019-12-11 10:30)
PROC: 4A023N7 Measurement of Cardiac Sampling and Pressure, Left Heart, Percutaneous Approach (ICD-10-PCS; 2019-12-11 10:30)
PROC: B2141ZZ Fluoroscopy of Right Heart using Low Osmolar Contrast (ICD-10-PCS; 2019-12-12)
DX: I21.4 Non-ST elevation (NSTEMI) myocardial infarction (principal); I50.22 Chronic systolic (congestive) heart failure; K21.9 Gastro-esophageal reflux disease without esophagitis; F17.200 Nicotine dependence, unspecified, uncomplicated; I25.5 Ischemic cardiomyopathy; M19.91 Primary osteoarthritis, unspecified site; E66.9 Obesity, unspecified; I11.0 Hypertensive heart disease with heart failure; I25.82 Chronic total occlusion of coronary artery; I25.10 Atherosclerotic heart disease of native coronary artery without angina pectoris; I25.2 Old myocardial infarction; Z11.59 Encounter for screening for other viral diseases; Z95.5 Presence of coronary angioplasty implant and graft; Z68.34 Body mass index [BMI] 34.0-34.9, adult; Z79.01 Long term (current) use of anticoagulants; Z79.02 Long term (current) use of antithrombotics/antiplatelets; Z79.899 Other long term (current) drug therapy; Z79.82 Long term (current) use of aspirin
CPT/HCPCS: 36415; 70450; 71046; 80048; 80053; 83690; 83735; 83880; 84484; 85025; 85610; 85730; 92920; 93005; 93306; 93454; 93458; 96365; 96366; 96368; 96375; 96376; 99285

== ENCOUNTER 2020-01-08 08:04 | Day surgery (SDC) | payer OTHER ==
[2020-01-05 14:27] VITALS: BMI 33.9
[~2020-01-08 08:04] MED LIST: ALPRAZolam 0.25 MG TAB PO PRN; ALPRAZolam 0.5 MG TAB PO PRN; ASPIRIN 325 MG TAB PO ONE; ATORVASTATIN 80 MG TAB PO ONE; NITROGLYCERIN SL TABS 0.4 MG TAB SUBLINGUAL PRN; SODIUM CHLORIDE 0.9% 1,000 ML in EMPTY BAG 1 BAG IV ONE
[2020-01-08] MEDS ORDERED: ASPIRIN 81 MG ONE (08:20)
[2020-01-08] MEDS ORDERED: SODIUM CHLORIDE 0.9% 1,000 ML IV ONE (08:34)
[2020-01-08 08:35] LABS: Glucose,Whole Blood 248 mg/dL (75-99)
[2020-01-08] MEDS ORDERED: INSULIN ASPART (NovoLOG) 100 UNIT/ML VIAL SQ SCH (08:35)
[2020-01-08 08:43] VITALS: TEMP 98.3
[2020-01-08] MEDS ORDERED: LIDOCAINE 1% INJ 10MG/ML (20 ML MDV) ONE (09:05)
[2020-01-08] MEDS ORDERED: MIDAZOLAM 2 MG/2 ML VIAL IVP ONE (09:30)
[2020-01-08] MEDS ORDERED: LIDOCAINE 1% INJ 10MG/ML (20 ML MDV) SQ ONE (09:32)
[2020-01-08] MEDS ORDERED: IOPAMIDOL-370 100ML BTL INJ ONE (09:47)
[2020-01-08] MEDS ORDERED: SODIUM CHLORIDE 0.9% 1,000 ML IV SCH (10:00)
--- NOTE | 2020-01-08 10:47 | CC ---
CARDIAC CATHETERIZATION REPORT DATE OF SERVICE: 01/08/2020 PERFORMING PHYSICIAN: Jamel Apodaca MD. PROCEDURE PERFORMED: 1. Selective right and left coronary angiogram. 2. Left heart catheterization. INDICATION: This is a 59-year-old gentleman with coronary artery disease and prior stenting of the RCA who was admitted to the hospital recently with acute coronary syndrome and underwent a heart catheterization and that revealed occluded RCA with a large thrombus burden. He was infused overnight with Aggrastat and was brought the following day. The angiogram of the RCA revealed improvement in the size of the thrombus with better flow in the RCA. At that point, the patient was started on oral anticoagulation and he was brought today third look. APPROACH: Right common femoral artery. COMPLICATION: None. LEVEL OF SEDATION: Moderate with sedation length of 15 minutes. PROCEDURE DESCRIPTION: After obtaining an informed consent, the patient was brought to the cardiac organic lab worker. The right common femoral artery was cannulated using micropuncture technique and a micropuncture wire passed easily, then I placed a 6-Ukrainian sheath. After that I did selective right and left coronary angiogram with JR4 and JL4 catheters. Left heart catheterization was performed using the JR4 catheter. The procedure was completed without any complication. SELECTIVE CORONARY ANGIOGRAM: 1. The left main is angiographically normal it bifurcates into LCX and LAD. 2. The LCX is a large caliber vessel it is a nondominant vessel. The LCX in the AV groove is angiographically normal. It gives rise into the first and second obtuse marginal branches and both they have mild disease only. 3. The LAD, the proximal LAD is angiographically normal. It gives rise into a large diagonal branch which seems to be normal. The mid and distal LAD are angiographically normal. 4. The RCA is a large caliber vessel. The proximal RCA is ectatic. The mid RCA is stented with intermediate to severe in-stent restenosis appeared to be in the range of 60%. There is still a small part of the previous clots seen in the mid RCA but the flow is ESTEVAN-3 flow. 5. HEMODYNAMICS: The LVEDP was 11 mmHg without significant gradient across aortic valve. CONCLUSION: 1. Significant improvement in the thrombus burden in the RCA with ESTEVAN-3 flow and intermediate to severe lesion appeared to be in the range of 60% to 70%.. 2. Mild to moderate nonobstructive disease involving the left coronary system. 3. Normal LVEDP. POSTPROCEDURE MANAGEMENT: 1. Given the above findings, I did recommend maximized medical treatment and continue anti-platelet and anticoagulation. 2. Follow up with the patient. 3. Maybe consider stress test to assess for ischemia in the RCA territory. JOSE DE JESUS / YARELI: [id number] /
[2020-01-08 15:52] VITALS: BP 137/81; PULSE 61; RESP 18
== END 2020-01-08 15:52 | disposition home or self-care (01) ==
LOC: CATHCVL 08:04
PROVIDERS: ATTEND Internal Medicine Interventional Cardiology
DX: I24.0 Acute coronary thrombosis not resulting in myocardial infarction (principal); I25.10 Atherosclerotic heart disease of native coronary artery without angina pectoris; I77.89 Other specified disorders of arteries and arterioles; T82.855A Stenosis of coronary artery stent, initial encounter; E11.9 Type 2 diabetes mellitus without complications; I10 Essential (primary) hypertension; E78.5 Hyperlipidemia, unspecified; F17.200 Nicotine dependence, unspecified, uncomplicated; I25.2 Old myocardial infarction; E78.00 Pure hypercholesterolemia, unspecified; Z95.5 Presence of coronary angioplasty implant and graft; Z79.82 Long term (current) use of aspirin; Z79.899 Other long term (current) drug therapy; Z79.01 Long term (current) use of anticoagulants; Z79.02 Long term (current) use of antithrombotics/antiplatelets; Z82.49 Family history of ischemic heart disease and other diseases of the circulatory system
CPT/HCPCS: 93458; C1894; C1769 ×2; J2250; J2001; Q9967

== ENCOUNTER 2021-06-01 12:49 | Emergency (ER) | payer OTHER ==
[2021-06-01 13:25] VITALS: BP 140/92; PULSE 65; RESP 18; TEMP 99.4
[2021-06-01 14:02] LABS: Basophils % (A) 0 %; Eosinophils # (A) 0.2 k/uL (0-0.7); Eosinophils % (A) 1 %; HCT 49.6 % (39.0-53.0); HGB 16.9 gm/dL (13.0-17.5); Lymphocytes # (A) 1.8 k/uL (1.0-4.8); Lymphocytes % (A) 16 %; MCH 34.4 pg (25.0-35.0); MCV 101.2 fL (80.0-100.0); Mean Platelet Volume 7.2; Monocytes # (A) 0.6 k/uL (0-1.0); Monocytes % (A) 5 %; Neutrophils # (A) 8.8 k/uL (1.3-7.7); Neutrophils % (A) 76 %; Platelet Count 219 k/uL (150-450); RDW 12.3 % (11.5-15.5); WBC 11.5 k/uL (3.8-10.6)
[2021-06-01 14:12] LABS: ALT 51 U/L (4-49); AST 32 U/L (17-59); African American GFR (CKD) >90 (>60 ml/min/1.73 sqM); Albumin 4.2 g/dL (3.5-5.0); Alkaline Phosphatase 51 U/L (38-126); Anion Gap 8 mmol/L; Blood Urea Nitrogen 11 mg/dL (9-20); Calcium 9.4 mg/dL (8.4-10.2); Carbon Dioxide 24 mmol/L (22-30); Chloride 104 mmol/L (98-107); Glucose 145 mg/dL (74-99); Non-African American GFR(CKD) >90 (>60 ml/min/1.73 sqM); Potassium 4.1 mmol/L (3.5-5.1); Sodium 136 mmol/L (137-145); Total Protein 7.2 g/dL (6.3-8.2)
[2021-06-01 14:24] LABS: Prothrombin Time 10.6 sec (9.0-12.0)
[2021-06-01 14:24] LABS: RBC,Urine >182 /hpf (0-5); WBC,Urine >182 /hpf (0-5)
[2021-06-01 14:25] LABS: Appearance,Urine Bloody (Clear); Color,Urine Red
[2021-06-01 14:25] LABS: Partial Thromboplastin Time 23.8 sec (22.0-30.0)
[2021-06-01] MEDS ORDERED: SODIUM CHLORIDE 0.9% 1,000 ML IV STA (15:51)
--- NOTE | 2021-06-01 15:58 | ED ---
General Adult HPI - General Chief complaint: Urogenital Stated complaint: Male Urogenital Time Seen by Provider: 06/01/21 14:01 Source: patient, RN notes reviewed Mode of arrival: ambulatory Limitations: physical limitation - History of Present Illness Initial comments: 60-year-old male presents to the emergency department for evaluation of hematuria, onset this morning. Patient states his first void of the morning was bloody and he had burning pain in the urethra. Patient also complains of mild right flank pain. States he contacted his PCP earlier today who called him in an antibiotic, though he has not started this yet. Patient does state he had a new sexual partner approximately 3 months ago and did not use protection during intercourse. Denies any penile lesions or discharge. No fever, chills, chest pain, abdominal pain, nausea, vomiting, diarrhea. - Related Data Home Medications Medication Instructions Recorded Confirmed Atorvastatin [Lipitor] 40 mg PO HS 12/10/19 06/01/21 Metoprolol Tartrate [Lopressor] 12.5 mg PO BID 12/10/19 06/01/21 lisinopriL [Zestril] 20 mg PO DAILY 01/05/20 06/01/21 Apixaban [Eliquis] 5 mg PO BID 01/08/20 06/01/21 Ciprofloxacin HCl [Cipro] 500 mg PO BID 06/01/21 06/01/21 Furosemide [Lasix] 40 mg PO DAILY 06/01/21 06/01/21 Lansoprazole [Prevacid] 30 mg PO DAILY 06/01/21 06/01/21 metFORMIN HCL ER [Glucophage XR] 500 mg PO DAILY 06/01/21 06/01/21 Allergies Allergy/AdvReac Type Severity Reaction Status Date / Time No Known Allergies Allergy Verified 06/01/21 17:05 Review of Systems ROS Statement: Those systems with pertinent positive or pertinent negative responses have been documented in the HPI. ROS Other: All systems not noted in ROS Statement are negative. Past Medical History Past Medical History: GERD/Reflux, Myocardial Infarction (MT) Additional Past Medical History / Comment(s): blood clot in stent Last Myocardial Infarction Date:: 12/11/19 History of Any Multi-Drug Resistant Organisms: None Reported Past Surgical History: Heart Catheterization With Stent Past Anesthesia/Blood Transfusion Reactions: No Reported Reaction Date of Last Stent Placement:: 08/07/2018 Past Psychological History: No Psychological Hx Reported Smoking Status: Former smoker Past Alcohol Use History: Daily Past Drug Use History: Marijuana General Exam Limitations: physical limitation General appearance: alert, in no apparent distress (Well-developed, well- nourished male in no acute distress. Initial temperature 99.4, pulse 65, respirations 18, blood pressure 140/92, pulse ox 95% on room air.) ENT exam: Present: normal exam, normal oropharynx, mucous membranes moist Respiratory exam: Present: normal lung sounds bilaterally. Absent: respiratory distress, wheezes, rales, rhonchi, stridor Cardiovascular Exam: Present: regular rate, normal rhythm, normal heart sounds. Absent: systolic murmur, diastolic murmur, rubs, gallop, clicks GI/Abdominal exam: Present: soft, normal bowel sounds exam: Present: normal inspection Back exam: Present: CVA tenderness (R) Neurological exam: Present: alert, oriented X3, CN II-XII intact Psychiatric exam: Present: normal affect, normal mood Skin exam: Present: warm, dry, intact, normal color. Absent: rash Course Vital Signs 06/01/21 13:19 Temperature 99.4 F Pulse Rate 65 Respiratory 18 Rate Blood Pressure 140/92 O2 Sat by Pulse 95 Oximetry - Reevaluation(s) Reevaluation #1: 06/01/21 18:30 Updated patient on course of treatment. He states his urine has cleared from red to pink to dark yellow. He did not picker/puller the antibiotic prescribed by his PCP prior to arrival therefore is hoping to leave here soon in order to be able to obtain that. 06/01/21 19:05 Patient left prior to receiving discharge instructions. He was not treated empirically for STI as there were no physical exam findings indicative of this. Patient will be contacted to discuss CT and ultrasound results, as well as to encourage follow up with PCP, urology, and compliance with oral antibiotic therapy. Medical Decision Making - Medical Decision Making 60-year-old male with a history of CAD and GERD presents to the emergency department for evaluation of hematuria, onset this morning. Upon exam, patient is well appearing and resting comfortably. He is afebrile and not tachypneic nor tachycardic. Patient's urine is reddish orange in appearance, but has lightened in color throughout his stay. Patient was prescribed oral antibiotics by his PCP earlier today but has not yet obtained them. States he came to the emergency department because he was worried. Does acknowledge having a new sexual partner approximately 3 months ago, but does not have any penile lesions or discharge. Cultures were sent, results are pending, but patient was not treated empirically due to physical exam findings. Discussed plan of care including blood work and radiology studies, patient was agreeable to this. Laboratory studies were reviewed. Mild leukocytosis noted. Urinalysis shows gross hematuria with both urine RBCs and WBCs >182. CT of the abdomen and pelvis shows urinary bladder wall thickening and irregularity consistent with infection or possibly infiltrative disease such as malignancy. No renal collecting system dilatation or evidence for calculi. No evidence for renal mass. 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 Patient will be instructed to follow up with his peanut blancher. Ultrasound demonstrates similar findings. Patient will be discharged home to obtain antibioitic prescribed by PCP and instructed to follow up with both PCP and urology for further evaluation and treatment. Unfortunately, patient left prior to receiving his discharge instruction. I will call him to review findings and encourage appropriate follow up care. This patient's care was discussed with my attending Dr. Maynard. - Lab Data Result diagrams: 06/01/21 13:41 06/01/21 13:41 Lab Results 06/01/21 06/01/21 06/01/21 Range/Units 13:41 13:41 13:41 WBC 11.5 H (3.8-10.6) k/uL RBC 4.90 (4.30-5.90) m/uL Hgb 16.9 (13.0-17.5) gm/dL Hct 49.6 (39.0-53.0) % MCV 101.2 H (80.0-100.0) fL MCH 34.4 (25.0-35.0) pg MCHC 34.0 (31.0-37.0) g/dL RDW 12.3 (11.5-15.5) % Plt Count 219 (150-450) k/uL MPV 7.2 Neutrophils % 76 % Lymphocytes % 16 % Monocytes % 5 % Eosinophils % 1 % Basophils % 0 % Neutrophils # 8.8 H (1.3-7.7) k/uL Lymphocytes # 1.8 (1.0-4.8) k/uL Monocytes # 0.6 (0-1.0) k/uL Eosinophils # 0.2 (0-0.7) k/uL Basophils # 0.0 (0-0.2) k/uL PT 10.6 (9.0-12.0) sec INR 1.0 (<1.2) APTT 23.8 (22.0-30.0) sec Sodium 136 L (137-145) mmol/L Potassium 4.1 (3.5-5.1) mmol/L Chloride 104 (98-107) mmol/L Carbon Dioxide 24 (22-30) mmol/L Anion Gap 8 mmol/L BUN 11 (9-20) mg/dL Creatinine 0.64 L (0.66-1.25) mg/dL Est GFR (CKD-EPI)AfAm >90 (>60 ml/min/1.73 sqM) Est GFR (CKD-EPI)NonAf >90 (>60 ml/min/1.73 sqM) Glucose 145 H (74-99) mg/dL Calcium 9.4 (8.4-10.2) mg/dL Total Bilirubin 1.0 (0.2-1.3) mg/dL AST 32 (17-59) U/L ALT 51 H (4-49) U/L Alkaline Phosphatase 51 (38-126) U/L Total Protein 7.2 (6.3-8.2) g/dL Albumin 4.2 (3.5-5.0) g/dL Urine Color Urine Appearance (Clear) Urine RBC (0-5) /hpf Urine WBC (0-5) /hpf 06/01/21 Range/Units 13:42 WBC (3.8-10.6) k/uL RBC (4.30-5.90) m/uL Hgb (13.0-17.5) gm/dL Hct (39.0-53.0) % MCV (80.0-100.0) fL MCH (25.0-35.0) pg MCHC (31.0-37.0) g/dL RDW (11.5-15.5) % Plt Count (150-450) k/uL MPV Neutrophils % % Lymphocytes % % Monocytes % % Eosinophils % % Basophils % % Neutrophils # (1.3-7.7) k/uL Lymphocytes # (1.0-4.8) k/uL Monocytes # (0-1.0) k/uL Eosinophils # (0-0.7) k/uL Basophils # (0-0.2) k/uL PT (9.0-12.0) sec INR (<1.2) APTT (22.0-30.0) sec Sodium (137-145) mmol/L Potassium (3.5-5.1) mmol/L Chloride (98-107) mmol/L Carbon Dioxide (22-30) mmol/L Anion Gap mmol/L BUN (9-20) mg/dL Creatinine (0.66-1.25) mg/dL Est GFR (CKD-EPI)AfAm (>60 ml/min/1.73 sqM) Est GFR (CKD-EPI)NonAf (>60 ml/min/1.73 sqM) Glucose (74-99) mg/dL Calcium (8.4-10.2) mg/dL Total Bilirubin (0.2-1.3) mg/dL AST (17-59) U/L ALT (4-49) U/L Alkaline Phosphatase (38-126) U/L Total Protein (6.3-8.2) g/dL Albumin (3.5-5.0) g/dL Urine Color Red Urine Appearance Bloody (Clear) Urine RBC >182 H (0-5) /hpf Urine WBC >182 H (0-5) /hpf - Radiology Data Radiology results: report reviewed, image reviewed CT of the abdomen and pelvis with contrast was obtained. Report was reviewed in its entirety. Impression per Dr. Sears is urinary bladder wall thickening and irregularity could be seen with infection or infiltrative disease such as malignancy. Considere direct visualization. No renal collecting system dilatation or evidence for calculi. No evidence for renal mass. 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 Renal and bladder ultrasound was obtained. Report is reviewed in its entirety. Impression per Dr. Beltran's #1 circumferential bladder wall thickening up to 1 cm. Correlate for cystitis or chronic bladder wall hypertrophy. Given the appearance on CT with thickening measuring up to 2.1 cm, recommend urology referral to exclude infiltrating urothelial neoplasm. #2 no hydronephrosis. Disposition Clinical Impression: Hematuria, Acute cystitis Disposition: HOME SELF-CARE Condition: Stable Instructions (If sedation given, give patient instructions): Urinary Tract Infection in Men (ED), Hematuria (ED) Additional Instructions: Please obtain antibiotic as prescribed by her PCP and begin taking it immediately. Continue to increase fluids and empty your bladder regularly. Follow up with urology for further evaluation if symptoms persist. See your family doctor for a recheck in the next few days. Return to the emergency department with any new, worsening, or concerning symptoms. Is patient prescribed a controlled substance at d/c from ED?: No Referrals: Iglesia Garcia MD [Primary Care Provider] - 1-2 days Arthur Dash MD [STAFF PHYSICIAN] - 1-2 days Time of Disposition: 19:05
--- NOTE | 2021-06-01 18:18 | CT ---
EXAMINATION TYPE: CT abdomen pelvis w con DATE OF EXAM: 06/01/2021 COMPARISON: None HISTORY: Pelvic pain and hematuria CT DLP: 2249.4 mGycm, Automated Exposure Control for Dose Reduction was Utilized. CONTRAST: CT scan of the abdomen and pelvis is performed with oral and with IV Contrast, patient injected with 100 mL of Isovue 300. FINDINGS: LUNG BASES: No significant abnormality is appreciated. INCLUDED CARDIAC STRUCTURES: Unremarkable LIVER: No significant abnormality is appreciated. GALLBLADDER : No significant abnormality is appreciated. BILIARY TREE: No abnormal biliary tree dilation. PANCREAS: No significant abnormality is seen. SPLEEN: No significant abnormality is seen. ADRENALS: No significant abnormality is seen. KIDNEYS AND URETERS: No significant abnormality is seen. URINARY BLADDER: There is urinary bladder wall thickening with sparing of the right posterior urinary bladder wall. Urinary bladder is underdistended. PROSTATE: Nonenlarged ESOPHAGUS: No significant abnormality is seen. STOMACH: No significant abnormality is seen. SMALL BOWEL: No significant abnormality is seen. LARGE BOWEL: No significant abnormality is seen. APPENDIX: No significant abnormality is seen. HERNIAS: No significant hernia seen. PERITONEUM/MESENTRY: No pneumoperitoneum or ascites. LYMPH NODES: No enlarged retroperitoneal or pelvic lymph nodes are appreciated. MAJOR VASCULAR STRUCTURES: There is fusiform dilatation of the infrarenal abdominal aorta. The aneury smal wall is a calcified wall and the aneurysmal lumen appears thrombosed. There is no periaortic flu id collection. Scattered calcifications are seen in the wall of the thoracic and abdominal aorta. The aortic diameter including the aneurysm is 4.6 x 4.1 cm (TV, AP). OSSEOUS STRUCTURES: Remote fracture deformity involving the lateral aspect of the right 10th rib is s een. No acute fracture or dislocation. Moderate severe degenerative changes are seen in the thoracic and lumbar spine most severe at L4-5 and L5-S1. IMPRESSION: Urinary bladder wall thickening and irregularity could be seen with infection or infiltrative disease such as malignancy. Consider direct visualization. No renal collecting system dilatation or evidence for calculi. No evidence for renal mass. 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
--- NOTE | 2021-06-01 18:58 | US ---
EXAMINATION TYPE: US renals and bladder DATE OF EXAM: 06/01/2021 COMPARISON: Correlation CT 06/01/2021 CLINICAL HISTORY: 60-year-old male gross hematuria, right flank pain. Macroscopic hematuria x 1 day TECHNIQUE: Multiple sonographic images of the kidneys and bladder are obtained. FINDINGS: EXAM MEASUREMENTS: Right Kidney: 11.4 x 5.6 x 5.8 cm Left Kidney: 11.9 x 5.9 x 5.9 cm Kidneys: No hydronephrosis. Bladder: Partially distended. Wall thickening = 1.0 cm Bilateral Jets seen IMPRESSION: 1. Circumferential bladder wall thickening up to 1 cm. Correlate for cystitis or chronic bladder wall hypertrophy. Given the appearance on CT with thickening measures up to 2.1 cm, recommend urology ref erral to exclude infiltrating urothelial neoplasm 2. No hydronephrosis.
[2021-06-06 15:13] LABS: C. trachomatis,PCR Equivocal (Neg,Equiv); Chlamydia trachomatis Source Urine; N. gonorrhoeae,PCR Equivocal (Neg,Equiv); Neisseria Source Urine
== END 2021-06-01 19:09 | disposition home or self-care (01) ==
LOC: EC 12:49
DX: N30.01 Acute cystitis with hematuria (principal); K21.9 Gastro-esophageal reflux disease without esophagitis; I25.2 Old myocardial infarction; F12.90 Cannabis use, unspecified, uncomplicated; Z79.01 Long term (current) use of anticoagulants; Z79.84 Long term (current) use of oral hypoglycemic drugs; Z87.891 Personal history of nicotine dependence
CPT/HCPCS: 99284; 36415; 80053; 85025; 85610; 85730; 81001; 87491; 87591; 76770; 74177; Q9967

== ENCOUNTER → 2023-03-06 | Outpatient (CLI) | payer OTHER ==
[2023-03-06 16:10] LABS: Chol/HDL Ratio 4.55 Ratio; HDL Cholesterol 34.3 mg/dL (40.00-60.00); LDL Cholesterol,Calculated 13.5 mg/dL (0.0-131.0); VLDL Calculation 108.2 mg/dL (5.00-40.00)
[2023-03-06 16:24] LABS: LDL Cholesterol,Direct Reflex 52.8 mg/dL (0.00-129.00)
== END | disposition home or self-care (01) ==
LOC: LABWHC1 10:26
PROVIDERS: ATTEND Internal Medicine Interventional Cardiology
DX: E78.2 Mixed hyperlipidemia (principal)
CPT/HCPCS: 36415; 80061; 83721; 84450; 84460

== ENCOUNTER 2023-07-21 03:38 | Emergency (ER) | payer OTHER ==
--- NOTE | 2023-07-21 04:09 | ED ---
General Adult HPI - General Chief complaint: Abdominal Pain Stated complaint: abd pain light headed Time Seen by Provider: 07/21/23 03:57 Source: patient Mode of arrival: ambulatory - History of Present Illness Initial comments: Dictation was produced using [employer] dictation software. please excuse any grammatical, word or spelling errors. Chief Complaint: 62-year-old male with acute abdominal pain History of Present Illness: Patient 62-year-old male presents with acute abdo adriana pain is head pain since about 5 PM yesterday. Patient states the pain is epigastric sharp. Denies any nausea or vomiting. He is able to keep some liquids down. at the bedside states that she thinks he has food poisoning. Patient has a fever, chills or night sweats. Denies any history of abdominal surgery. He has known history of small abdominal aortic aneurysm. The ROS documented in this emergency department record has been reviewed and confirmed by me. Those systems with pertinent positive or negative responses have been documented in the HPI. All other systems are other negative and/or noncontributory. - Related Data Home Medications Medication Instructions Recorded Confirmed Atorvastatin [Lipitor] 40 mg PO HS 12/10/19 02/18/23 Metoprolol Tartrate [Lopressor] 12.5 mg PO BID 12/10/19 02/15/23 lisinopriL [Zestril] 10 mg PO BID 01/05/20 02/15/23 Lansoprazole [Prevacid] 30 mg PO HS 06/01/21 02/18/23 Rivaroxaban [Xarelto] 20 mg PO DAILY 07/26/22 02/18/23 Cinnamon Bark [Cinnamon] 1 tab PO DAILY 02/15/23 02/15/23 Aspirin 325 mg PO ONCE 02/18/23 02/18/23 Allergies Allergy/AdvReac Type Severity Reaction Status Date / Time No Known Allergies Allergy Verified 07/21/23 03:54 Review of Systems ROS Statement: Those systems with pertinent positive or pertinent negative responses have been documented in the HPI. ROS Other: All systems not noted in ROS Statement are negative. Past Medical History Past Medical History: Diabetes Mellitus, GERD/Reflux, Hypertension, Myocardial Infarction ([place]) Additional Past Medical History / Comment(s): blood clot in stent Last Myocardial Infarction Date:: 12/11/19 History of Any Multi-Drug Resistant Organisms: None Reported Past Surgical History: Heart Catheterization With Stent Additional Past Surgical History / Comment(s): RIGHT HIP ARTHROPLASTY Past Anesthesia/Blood Transfusion Reactions: No Reported Reaction Date of Last Stent Placement:: 08/07/2018 Past Psychological History: No Psychological Hx Reported Smoking Status: Former smoker Past Alcohol Use History: Daily Past Drug Use History: Marijuana - Past Family History Father Family Medical History: Cancer Additional Family Medical History / Comment(s): colon Mother Family Medical History: Cancer Additional Family Medical History / Comment(s): breast General Exam - General Exam Comments Initial Comments: PHYSICAL EXAM: General Impression: Alert and oriented x3, not in acute distress HEENT: Normocephalic atraumatic, extra-ocular movements intact, pupils equal and reactive to light bilaterally, mucous membranes moist. Cardiovascular: Heart regular rate and rhythm Chest: Able to complete full sentences, no retractions, no tachypnea Abdomen: abdomen soft, n mild epigastric tenderness, non-distended, no organomegaly Musculoskeletal: Pulses present and equal in all extremities, no peripheral edema Motor: no focal deficits noted Neurological: CN II-XII grossly intact, no focal motor or sensory deficits noted Skin: Intact with no visualized rashes Psych: Normal affect and mood Course Vital Signs 07/21/23 07/21/23 07/21/23 03:49 04:41 06:44 Temperature 97.7 F 98.5 F 99.4 F Pulse Rate 63 60 56 L Respiratory 19 18 18 Rate Blood Pressure 163/93 157/94 162/88 O2 Sat by Pulse 93 L 95 96 Oximetry EKG Findings - EKG Comments: EKG Findings:: My EKG interpretation: Ventricular rate 56, sinus bradycardia,. 150, cures 89, QTc 432. No [place] prolongation, no QTC prolongation, no ST or T-wave changes noted. . Overall, this EKG is unremarkable Medical Decision Making - Medical Decision Making Was pt. sent in by a medical professional or institution (, PA, COUNTRY DIRECTOR, urgent care, hospital, or jail...) When possible be specific @ -No Did you speak to anyone other than the patient for history (EMS, parent, family, police, friend...)? What history was obtained from this source @ -No Did you review nursing and triage notes (agree or disagree)? Why? @ -I reviewed and agree with nursing and triage notes Were old charts reviewed (outside hosp., previous admission, EMS record, old EKG, old radiological studies, urgent care reports/EKG's, jail records)? Report findings @ -No old charts were reviewed Differential Diagnosis (chest pain, altered mental status, abdominal pain women, abdominal pain men, vaginal bleeding, musculoskeletal, weakness, fever, dyspnea, syncope, headache, dizziness, GI bleed, back pain, seizure, CVA, palpatations, mental health)? @ -Differential Abdominal Pain Men: Appendicitis, cholecystitis, diverticulosis, ischemic bowel, pancreatitis, hepatitis, UTI, gastroenteritis, AAA, incarcerated hernia, bowel obstruction, constipation, inflammatory bowel, hepatitis, peptic ulcer disease, splenic infarction, perforated viscus, testicular torsion, this is not meant to be an all-inclusive list EKG interpreted by me (3pts min.). @ -See above X-rays interpreted by me (1pt min.). @ -None done CT interpreted by me (1pt min.). @ -CT scan of the abdomen pelvis shows no acute processes. Patient is stable appearing abdominal aortic aneurysm without any complications U/S interpreted by me (1pt. min.). @ -None done What testing was considered but not performed or refused? (CT, X-rays, U/S, labs)? Why? @ -None What meds were considered but not given or refused? Why? @ -None Did you discuss the management of the patient with other professionals (professionals i.e. , PA, COUNTRY DIRECTOR, lab, RT, psych nurse, social services technician, mechanical manufacturing technician, teacher, police officer crime prevention, family preservation caseworker)? Give summary @ -No Was smoking cessation discussed for >3mins.? @ -No Was critical care preformed (if so, how long)? @ -No Were there social determinants of health that impacted care today? How? (Homelessness, low income, unemployed, alcoholism, drug addiction, transportation, low edu. Level, literacy, decrease access to med. care, longterm, rehab)? @ -No Was there de-escalation of care discussed even if they declined (Discuss DNR or withdrawal of care, Hospice)? DNR status @ -No What co-morbidities impacted this encounter? (DM, HTN, Smoking, COPD, CAD, Canc er, CVA, ARF, Chemo, Hep., AIDS, mental health diagnosis, sleep apnea, morbid obesity)? @ -None Was patient admitted / discharged? Hospital course, mention meds given and route, prescriptions, significant lab abnormalities, going to OR and other pertinent info. @ -62-year-old male presents to the emergency department with abdominal pain. He just localizes pain to the epigastrium. Vital signs upon arrival are within acceptable limits. Laboratory evaluation is within acceptable limits. He does have some mild hyponatremia however 129. Abdominal labs negative. No leukocytosis. Lipase is normal. CT scan shows no acute processes. Patient reevaluated at the bedside still having symptoms. Patient given GI cocktail with no obvious changes in his symptoms. Patient was then again reevaluated states that his pain is gone. Disposition options were discussed. Patient was encouraged to be admitted for medical monitoring, serial abdominal examinations for possible ischemic bowel. Patient states that he feels improved enough and he wants to go home. He understands that his symptoms could get worse leading to life-threatening illness. Patient sound mind and judgment during the time of this conversation. at the bedside also understandable. He understands that he should return immediately to the emergency department if his symptoms acutely worsen. Nonetheless at time of discharge patient stable. He is given 1 dose of MiraLAX right before discharge. Undiagnosed new problem with uncertain prognosis? @ -No Drug Therapy requiring intensive monitoring for toxicity (Heparin, Nitro, Insulin, Cardizem)? @ -No Were any procedures done? @ -No Diagnosis/symptom? Acute, or Chronic, or Acute on Chronic? Uncomplicated (without systemic symptoms) or Complicated (systemic symptoms)? @ -Abdominal pain, no obvious source Side effects of treatment? @ -No Exacerbation, Progression, or Severe Exacerbation? @ -No Poses a threat to life or bodily function? How? (Chest pain, [place], [place], pneumonia, PE, COPD, DKA, ARF, appy, cholecystitis, CVA, Diverticulitis, Homicidal, Suicid al, threat to staff... and all critical care pts) @ -yes - Lab Data Result diagrams: 07/21/23 04:32 07/21/23 04:32 Lab Results 07/21/23 07/21/23 07/21/23 Range/Units 04:32 04:32 04:32 WBC 9.3 (3.8-10.6) k/uL RBC 4.95 (4.30-5.90) m/uL Hgb 16.2 (13.0-17.5) gm/dL Hct 48.2 (39.0-53.0) % MCV 97.3 (80.0-100.0) fL MCH 32.8 (25.0-35.0) pg MCHC 33.7 (31.0-37.0) g/dL RDW 11.9 (11.5-15.5) % Plt Count 180 (150-450) k/uL MPV 7.2 Neutrophils % 79 % Lymphocytes % 13 % Monocytes % 5 % Eosinophils % 1 % Basophils % 0 % Neutrophils # 7.4 (1.3-7.7) k/uL Lymphocytes # 1.2 (1.0-4.8) k/uL Monocytes # 0.4 (0-1.0) k/uL Eosinophils # 0.1 (0-0.7) k/uL Basophils # 0.0 (0-0.2) k/uL PT 11.1 (10.0-12.5) sec INR 1.0 (<1.2) APTT 24.1 (22.0-30.0) sec Sodium 129 L (137-145) mmol/L Potassium 4.2 (3.5-5.1) mmol/L Chloride 97 L (98-107) mmol/L Carbon Dioxide 25 (22-30) mmol/L Anion Gap 7 mmol/L BUN 12 (9-20) mg/dL Creatinine 0.54 L (0.66-1.25) mg/dL Est GFR (CKD-EPI)AfAm >90 (>60 ml/min/1.73 sqM) Est GFR (CKD-EPI)NonAf >90 (>60 ml/min/1.73 sqM) Glucose 300 H (74-99) mg/dL Plasma Lactic Acid Jasbir (0.7-2.0) mmol/L Calcium 9.0 (8.4-10.2) mg/dL Magnesium 1.8 (1.6-2.3) mg/dL Total Bilirubin 1.2 (0.2-1.3) mg/dL AST 38 (17-59) U/L ALT 53 H (4-49) U/L Alkaline Phosphatase 91 (38-126) U/L Total Protein 6.6 (6.3-8.2) g/dL Albumin 3.9 (3.5-5.0) g/dL Lipase 112 (23-300) U/L 07/21/23 Range/Units 04:32 WBC (3.8-10.6) k/uL RBC (4.30-5.90) m/uL Hgb (13.0-17.5) gm/dL Hct (39.0-53.0) % MCV (80.0-100.0) fL MCH (25.0-35.0) pg MCHC (31.0-37.0) g/dL RDW (11.5-15.5) % Plt Count (150-450) k/uL MPV Neutrophils % % Lymphocytes % % Monocytes % % Eosinophils % % Basophils % % Neutrophils # (1.3-7.7) k/uL Lymphocytes # (1.0-4.8) k/uL Monocytes # (0-1.0) k/uL Eosinophils # (0-0.7) k/uL Basophils # (0-0.2) k/uL PT (10.0-12.5) sec INR (<1.2) APTT (22.0-30.0) sec Sodium (137-145) mmol/L Potassium (3.5-5.1) mmol/L Chloride (98-107) mmol/L Carbon Dioxide (22-30) mmol/L Anion Gap mmol/L BUN (9-20) mg/dL Creatinine (0.66-1.25) mg/dL Est GFR (CKD-EPI)AfAm (>60 ml/min/1.73 sqM) Est GFR (CKD-EPI)NonAf (>60 ml/min/1.73 sqM) Glucose (74-99) mg/dL Plasma Lactic Acid Jasbir 1.5 (0.7-2.0) mmol/L Calcium (8.4-10.2) mg/dL Magnesium (1.6-2.3) mg/dL Total Bilirubin (0.2-1.3) mg/dL AST (17-59) U/L ALT (4-49) U/L Alkaline Phosphatase (38-126) U/L Total Protein (6.3-8.2) g/dL Albumin (3.5-5.0) g/dL Lipase (23-300) U/L Disposition Clinical Impression: Abdominal pain Disposition: HOME SELF-CARE Condition: Fair Instructions (If sedation given, give patient instructions): Abdominal Pain (ED) Is patient prescribed a controlled substance at d/c from ED?: No Referrals: Yung Patino MD [Primary Care Provider] - 1-2 days Time of Disposition: 07:14
[2023-07-21 04:44] LABS: Basophils % (A) 0 %; Eosinophils # (A) 0.1 k/uL (0-0.7); Eosinophils % (A) 1 %; HCT 48.2 % (39.0-53.0); HGB 16.2 gm/dL (13.0-17.5); Lymphocytes # (A) 1.2 k/uL (1.0-4.8); Lymphocytes % (A) 13 %; MCH 32.8 pg (25.0-35.0); MCHC 33.7 g/dL (31.0-37.0); MCV 97.3 fL (80.0-100.0); Mean Platelet Volume 7.2; Monocytes # (A) 0.4 k/uL (0-1.0); Monocytes % (A) 5 %; Neutrophils # (A) 7.4 k/uL (1.3-7.7); Neutrophils % (A) 79 %; Platelet Count 180 k/uL (150-450); RBC 4.95 m/uL (4.30-5.90); RDW 11.9 % (11.5-15.5); WBC 9.3 k/uL (3.8-10.6)
[2023-07-21 04:56] LABS: ALT 53 U/L (4-49); AST 38 U/L (17-59); African American GFR (CKD) >90 (>60 ml/min/1.73 sqM); Albumin 3.9 g/dL (3.5-5.0); Alkaline Phosphatase 91 U/L (38-126); Anion Gap 7 mmol/L; Blood Urea Nitrogen 12 mg/dL (9-20); Carbon Dioxide 25 mmol/L (22-30); Chloride 97 mmol/L (98-107); Glucose 300 mg/dL (74-99); Lipase 112 U/L (23-300); Magnesium 1.8 mg/dL (1.6-2.3); Non-African American GFR(CKD) >90 (>60 ml/min/1.73 sqM); Potassium 4.2 mmol/L (3.5-5.1); Sodium 129 mmol/L (137-145); Total Bilirubin 1.2 mg/dL (0.2-1.3); Total Protein 6.6 g/dL (6.3-8.2)
[2023-07-21 05:00] VITALS: RESP 18
[2023-07-21] MEDS: MORPHINE SULFATE 4 MG/ML SYRINGE IVP STA (05:00)
[2023-07-21 05:04] LABS: Partial Thromboplastin Time 24.1 sec (22.0-30.0); Prothrombin Time 11.1 sec (10.0-12.5)
[2023-07-21] MEDS: HYDROmorphone 1 MG/ML 1 ML SYRINGE IVP STA (05:38)
--- NOTE | 2023-07-21 06:02 | CT ---
EXAM: CT Abdomen and Pelvis With Intravenous Contrast CLINICAL HISTORY: severe epigastric pain TECHNIQUE: Axial computed tomography images of the abdomen and pelvis with intravenous contrast. CTDI is 35.2 mGy and DLP is 1727.4 mGy-cm. This CT exam was performed using one or more of the following dose reduction techniques: automated exposure control, adjustment of the mA and/or kV according to patient size, and/or use of iterative reconstruction technique. COMPARISON: CT June 01, 2021 FINDINGS: ABDOMEN: Liver: Unremarkable. No mass. Gallbladder and bile ducts: Unremarkable. No calcified stones. No ductal dilation. Pancreas: Unremarkable. No mass. No ductal dilation. Spleen: Unremarkable. No splenomegaly. Adrenals: Unremarkable. No mass. Kidneys and ureters: Unremarkable. No solid mass. No hydronephrosis. Stomach and bowel: Unremarkable. No obstruction. No mucosal thickening. PELVIS: Appendix: No findings to suggest acute appendicitis. Bladder: Unremarkable. No mass. ABDOMEN and PELVIS: Intraperitoneal space: Unremarkable. No free air. No significant fluid collection. Bones/joints: No acute findings. Soft tissues: Unremarkable. Vasculature: Abdominal aortic aneurysm measuring 4.5 cm. This is mildly increased from the prior study where it measured 4.2 cm. Lymph nodes: Unremarkable. No enlarged lymph nodes. IMPRESSION: No acute findings in the abdomen or pelvis. Abdominal aortic aneurysm measuring 4.5 cm. This is mildly increased from the prior study where it measured 4.2 cm.
[2023-07-21] MEDS: MAG HYDROX/AL HYDROX/SIMETH 30 ML, HYOSCYAMINE ELIXIR 10 ML, LIDOCAINE VISCOUS 2% 10 ML PO STA (06:30)
[2023-07-21 07:04] VITALS: BP 162/88; PULSE 56; TEMP 99.4
[2023-07-21] MEDS: polyethylene glycoL 3350 17 GM POWD.PACK PO STA (07:18)
== END 2023-07-21 07:31 | disposition home or self-care (01) ==
LOC: EC 03:38
DX: I71.40 Abdominal aortic aneurysm, without rupture, unspecified (principal); R00.1 Bradycardia, unspecified; E11.9 Type 2 diabetes mellitus without complications; I10 Essential (primary) hypertension; I25.2 Old myocardial infarction; F12.90 Cannabis use, unspecified, uncomplicated; Z87.891 Personal history of nicotine dependence; Z79.01 Long term (current) use of anticoagulants; Z79.899 Other long term (current) drug therapy; Z79.82 Long term (current) use of aspirin
CPT/HCPCS: 36415; 93005; 80053; 83605; 83690; 83735; 85025; 85610; 85730; 74177; 99285; 96374; 96375; J2270; J1170; Q9967

== ENCOUNTER 2024-06-28 12:18 | Emergency (ER) | payer OTHER ==
[2024-06-28 12:26] VITALS: TEMP 97.7
--- NOTE | 2024-06-28 12:31 | ED ---
General Adult HPI - General Chief complaint: Abdominal Pain Stated complaint: blood in urine Time Seen by Provider: 06/28/24 12:28 Source: patient Mode of arrival: ambulatory Limitations: no limitations - History of Present Illness Initial comments: Patient presents to the ED with his for evaluation. Patient states that he has had diffuse abdominal pain and "bloating" for the past couple of days. Patient also states that he has had dark red hematuria and dysuria for the past couple of days. Patient admits to having chronic low back pain, but he states that his low back pain has also been worse over the past couple of days. Patient admits to feeling nauseated, but he denies vomiting. Patient states that he did have loose bowel movements when his symptoms began, but his bowel movements have now become formed again. Patient states that he is on Xarelto anticoagulation therapy. Patient's states that the patient does have an abdominal aortic aneurysm that they are "following". Patient denies trauma or injury, fever or chills, headache, focal neuro deficit, chest pain or pressure, dyspnea, cough or cold symptoms, palpitations, dizziness, vomiting, bloody or melanotic stool, decreased urine output, leg or calf swelling or pain, or any other symptoms or complaints. - Related Data Home Medications Medication Instructions Recorded Confirmed Atorvastatin [Lipitor] 40 mg PO DAILY 12/10/19 06/28/24 Metoprolol Tartrate [Lopressor] 12.5 mg PO BID 12/10/19 06/28/24 lisinopriL [Zestril] 10 mg PO BID 01/05/20 06/28/24 Lansoprazole [Prevacid] 30 mg PO DAILY 06/01/21 06/28/24 Rivaroxaban [Xarelto] 20 mg PO DAILY 07/26/22 06/28/24 Aspirin EC [Ecotrin Low Dose] 81 mg PO DAILY 06/28/24 06/28/24 Previous Rx's Medication Instructions Recorded Ciprofloxacin HCl [Cipro] 500 mg PO Q12HR #20 tablet 06/28/24 Allergies Allergy/AdvReac Type Severity Reaction Status Date / Time No Known Allergies Allergy Verified 06/28/24 14:46 Review of Systems ROS Statement: Those systems with pertinent positive or pertinent negative responses have been documented in the HPI. ROS Other: All systems not noted in ROS Statement are negative. Past Medical History Past Medical History: Diabetes Mellitus, GERD/Reflux, Hypertension, Myocardial Infarction (RI) Additional Past Medical History / Comment(s): blood clot in stent Last Myocardial Infarction Date:: 12/11/19 History of Any Multi-Drug Resistant Organisms: None Reported Past Surgical History: Heart Catheterization With Stent Additional Past Surgical History / Comment(s): RIGHT HIP ARTHROPLASTY Past Anesthesia/Blood Transfusion Reactions: No Reported Reaction Date of Last Stent Placement:: 08/07/2018 Past Psychological History: No Psychological Hx Reported Smoking Status: Former smoker Past Alcohol Use History: Daily Past Drug Use History: Marijuana - Past Family History Father Family Medical History: Cancer Additional Family Medical History / Comment(s): colon Mother Family Medical History: Cancer Additional Family Medical History / Comment(s): breast General Exam Limitations: no limitations General appearance: alert, in no apparent distress Eye exam: Present: normal appearance ENT exam: Present: mucous membranes moist Respiratory exam: Present: normal lung sounds bilaterally. Absent: respiratory distress, wheezes, rales, rhonchi, stridor Cardiovascular Exam: Present: regular rate, normal rhythm, normal heart sounds, other (Normal radial pulses bilaterally) GI/Abdominal exam: Present: soft, normal bowel sounds, other (Slightly distended abdomen with moderate generalized abdominal tenderness). Absent: guarding, rebound Extremities exam: Absent: tenderness, pedal edema, calf tenderness Back exam: Absent: tenderness, CVA tenderness (R), CVA tenderness (L) Neurological exam: Present: alert, oriented X3. Absent: motor sensory deficit Psychiatric exam: Present: normal affect Skin exam: Present: warm, dry, normal color Course Vital Signs 06/28/24 06/28/24 06/28/24 12:23 15:13 16:09 Temperature 97.7 F Pulse Rate 73 65 72 Respiratory 18 18 20 Rate Blood Pressure 126/74 123/75 124/73 O2 Sat by Pulse 92 L 95 94 L Oximetry - Reevaluation(s) Reevaluation #1: 06/28/24 15:45 Patient states that his pain has improved with ED treatment. Patient denies development of any new symptoms while in the ED. Patient continues to have a soft abdominal exam without any evidence of rebound or guarding. Patient is afebrile and without leukocytosis. Patient and are aware the patient's test results, and patient feels comfortable being discharged home at this time. They were counseled about abdominal aortic aneurysms and UTIs. They were clearly explained return and follow-up instructions. Patient was instructed to follow-up closely with his primary care provider. Patient feels comfortable with this plan. Medical Decision Making - Medical Decision Making Was pt. sent in by a medical professional or institution ([facility], SALES ASSOCIATE KEY HOLDER, urgent care, hospital, or senior care...) When possible be specific @ -No Did you speak to anyone other than the patient for history (EMS, parent, family, police, friend...)? What history was obtained from this source @ -No Did you review nursing and triage notes (agree or disagree)? Why? @ -I reviewed and agree with nursing and triage notes Were old charts reviewed (outside hosp., previous admission, EMS record, old EKG, old radiological studies, urgent care reports/EKG's, senior care records)? Report findings @ -No old charts were reviewed Differential Diagnosis (chest pain, altered mental status, abdominal pain women, abdominal pain men, vaginal bleeding, weakness, fever, dyspnea, syncope, heada kayla, dizziness, GI bleed, back pain, seizure, CVA, palpatations, mental health, musculoskeletal)? @ -Differential Abdominal Pain Men: Appendicitis, cholecystitis, diverticulosis, ischemic bowel, pancreatitis, hepatitis, UTI, gastroenteritis, AAA, incarcerated hernia, bowel obstruction, constipation, inflammatory bowel, peptic ulcer disease, perforated viscus, hematuria, coagulopathy, this is not meant to be an all-inclusive list EKG interpreted by me (3pts min.). @ -None done X-rays interpreted by me (1pt min.). @ -None done CT interpreted by me (1pt min.). @ -CT abdomen/pelvis with IV contrast was reviewed myself and shows findings consistent with cystitis, as well as a stable AAA. I agree with the radiologist's interpretation as above. U/S interpreted by me (1pt. min.). @ -None done What testing was considered but not performed or refused? (CT, X-rays, U/S, labs)? Why? @ -None What meds were considered but not given or refused? Why? @ -None Did you discuss the management of the patient with other professionals (professionals i.e. , [facility], SALES ASSOCIATE KEY HOLDER, lab, RT, psych nurse, social service assistant, adjunct history instructor, teacher, community service officer coordinator, manager case)? Give summary @ -No Was smoking cessation discussed for >3mins.? @ -No Was critical care preformed (if so, how long)? @ -No Were there social determinants of health that impacted care today? How? (Homelessness, low income, unemployed, alcoholism, drug addiction, transportation, low edu. Level, literacy, decrease access to med. care, detention, re hab)? @ -No Was there de-escalation of care discussed even if they declined (Discuss DNR or withdrawal of care, Hospice)? DNR status @ -No What co-morbidities impacted this encounter? (DM, HTN, Smoking, COPD, CAD, Cancer, CVA, ARF, Chemo, Hep., AIDS, mental health diagnosis, sleep apnea, morbid obesity)? @ -None Was patient admitted / discharged? Hospital course, mention meds given and route, prescriptions, significant lab abnormalities, going to OR and other pertinent info. @ -Patient's abdominal pain has improved with ED treatment. Patient has a benign abdominal exam. Patient is afebrile and without leukocytosis. Patient's UA and CT imaging findings are suggestive of cystitis. Patient is also noted to have a stable AAA, which he states that he is being followed for. I suspect that the patient symptoms are likely secondary to his UTI/cystitis. Patient was given a first dose of ciprofloxacin in the ED, and he was provided with a prescription for a 10-day course of Cipro. Patient was counseled about UTI/cystitis, as well as AAA's, and he was clearly explained return and follow- up instructions. Will discharge patient home at this time. Patient feels comfortable with this plan. Undiagnosed new problem with uncertain prognosis? @ -No Drug Therapy requiring intensive monitoring for toxicity (Heparin, Nitro, Insulin, Cardizem)? @ -No Were any procedures done? @ -No Diagnosis/symptom? @ -Cystitis/UTI/hematuria Acute, or Chronic, or Acute on Chronic? @ -Acute Uncomplicated (without systemic symptoms) or Complicated (systemic symptoms)? @ -Default Side effects of treatment? @ -No Exacerbation, Progression, or Severe Exacerbation? @ -No Poses a threat to life or bodily function? How? (Chest pain, [place], RI, pneumonia, PE, COPD, DKA, ARF, appy, cholecystitis, CVA, Diverticulitis, Homicidal, Suicidal, threat to staff... and all critical care pts) @ -No Diagnosis/symptom? @ -Abdominal aortic aneurysm Acute, or Chronic, or Acute on Chronic? @ -Default Uncomplicated (without systemic symptoms) or Complicated (systemic symptoms)? @ -Default Side effects of treatment? @ -None Exacerbation, Progression, or Severe Exacerbation] @ -No Poses a threat to life or bodily function? @ -Not at this time, but possibly in the future. - Lab Data Result diagrams: 06/28/24 13:18 06/28/24 13:18 Lab Results 06/28/24 06/28/24 06/28/24 Range/Units 13:06 13:16 13:18 WBC 10.6 (3.8-10.6) k/uL RBC 4.97 (4.30-5.90) m/uL Hgb 17.0 (13.0-17.5) gm/dL Hct 49.2 (39.0-53.0) % MCV 99.2 (80.0-100.0) fL MCH 34.3 (25.0-35.0) pg MCHC 34.6 (31.0-37.0) g/dL RDW 11.7 (11.5-15.5) % Plt Count 181 (150-450) k/uL MPV 7.2 Neutrophils % 83 % Lymphocytes % 9 % Monocytes % 6 % Eosinophils % 1 % Basophils % 0 % Neutrophils # 8.8 H (1.3-7.7) k/uL Lymphocytes # 1.0 (1.0-4.8) k/uL Monocytes # 0.6 (0-1.0) k/uL Eosinophils # 0.1 (0-0.7) k/uL Basophils # 0.0 (0-0.2) k/uL PT (10.0-12.5) sec INR (<1.2) APTT (22.0-30.0) sec Sodium (137-145) mmol/L Potassium (3.5-5.1) mmol/L Chloride (98-107) mmol/L Carbon Dioxide (22-30) mmol/L Anion Gap mmol/L BUN (9-20) mg/dL Creatinine (0.66-1.25) mg/dL Est GFR (CKD-EPI)AfAm (>60 ml/min/1.73 sqM) Est GFR (CKD-EPI)NonAf (>60 ml/min/1.73 sqM) Glucose (74-99) mg/dL Plasma Lactic Acid Jasbir (0.7-2.0) mmol/L Calcium (8.4-10.2) mg/dL Total Bilirubin (0.2-1.3) mg/dL AST (17-59) U/L ALT (4-49) U/L Alkaline Phosphatase (38-126) U/L Total Protein (6.3-8.2) g/dL Albumin (3.5-5.0) g/dL Amylase (30-110) U/L Lipase (23-300) U/L Urine Color Dark Red Urine Appearance Turbid (Clear) Urine RBC >182 H (0-5) /hpf Urine WBC >182 H (0-5) /hpf Urine WBC Clumps Many H (None) /hpf Urine Bacteria Many H (None) /hpf Blood Type A Positive Blood Type Recheck A Pos Bld Type Recheck Status No Antibody Screen NEGATIVE Spec Expiration Date 07/01/2024 - 231506/28/24 06/28/24 06/28/24 Range/Units 13:18 13:18 13:18 WBC (3.8-10.6) k/uL RBC (4.30-5.90) m/uL Hgb (13.0-17.5) gm/dL Hct (39.0-53.0) % MCV (80.0-100.0) fL MCH (25.0-35.0) pg MCHC (31.0-37.0) g/dL RDW (11.5-15.5) % Plt Count (150-450) k/uL MPV Neutrophils % % Lymphocytes % % Monocytes % % Eosinophils % % Basophils % % Neutrophils # (1.3-7.7) k/uL Lymphocytes # (1.0-4.8) k/uL Monocytes # (0-1.0) k/uL Eosinophils # (0-0.7) k/uL Basophils # (0-0.2) k/uL PT 12.8 H (10.0-12.5) sec INR 1.2 H (<1.2) APTT 26.7 (22.0-30.0) sec Sodium 133 L (137-145) mmol/L Potassium 4.1 (3.5-5.1) mmol/L Chloride 98 (98-107) mmol/L Carbon Dioxide 23 (22-30) mmol/L Anion Gap 12 mmol/L BUN 12 (9-20) mg/dL Creatinine 0.63 L (0.66-1.25) mg/dL Est GFR (CKD-EPI)AfAm >90 (>60 ml/min/1.73 sqM) Est GFR (CKD-EPI)NonAf >90 (>60 ml/min/1.73 sqM) Glucose 307 H (74-99) mg/dL Plasma Lactic Acid Jasbir 1.4 (0.7-2.0) mmol/L Calcium 9.4 (8.4-10.2) mg/dL Total Bilirubin 1.9 H (0.2-1.3) mg/dL AST 24 (17-59) U/L ALT 41 (4-49) U/L Alkaline Phosphatase 78 (38-126) U/L Total Protein 6.9 (6.3-8.2) g/dL Albumin 4.2 (3.5-5.0) g/dL Amylase 45 (30-110) U/L Lipase 195 (23-300) U/L Urine Color Urine Appearance (Clear) Urine RBC (0-5) /hpf Urine WBC (0-5) /hpf Urine WBC Clumps (None) /hpf Urine Bacteria (None) /hpf Blood Type Blood Type Recheck Bld Type Recheck Status Antibody Screen Spec Expiration Date - Radiology Data CT abdomen/pelvis with IV contrast: 1. Mild nonspecific mesenteric diameter changes surrounding the mid and distal bilateral ureters and cervical urinary bladder wall thickening. Constellation of findings could reflect cystitis with pyelitis in the appropriate clinical setting. Correlate with urinalysis. Outpatient cystoscopy could be considered if symptoms persist. No obstructing stone or other lesion identified. 2. Partially thrombosed fusiform aneurysm of the infrarenal abdominal aorta measuring 4.7 x 4.5 cm, not significantly changed from prior study dated 07/21/2023 attending for measurement technique differences. 3. Additional nonacute findings as above. Disposition Clinical Impression: Abdominal pain, Abdominal aortic aneurysm, UTI (urinary tract infection) Disposition: HOME SELF-CARE Condition: Stable Instructions (If sedation given, give patient instructions): Urinary Tract Infection in Men (ED), Nonruptured Abdominal Aortic Aneurysm (DC), Abdominal Pain (ED) Additional Instructions: Return to the ER immediately should you develop new or worsening pain, a fever, shortness of breath, feeling dizzy or faint, inability to urinate, increased bleeding, persistent vomiting, or new or worsening symptoms. Follow-up closely with your primary care provider. Prescriptions: Ciprofloxacin HCl [Cipro] 500 mg PO Q12HR #20 tablet Is patient prescribed a controlled substance at d/c from ED?: No Referrals: Yung Patino MD [Primary Care Provider] - 1-2 days Time of Disposition: 16:02
[2024-06-28] MEDS: SODIUM CHLORIDE 0.9% 1,000 ML IV STA (13:20)
[2024-06-28] MEDS: ONDANSETRON 4 MG/2 ML VIAL IVP STA (13:20)
[2024-06-28] MEDS: HYDROmorphone 1 MG/ML 1 ML SYRINGE IVP STA (13:21)
[2024-06-28 13:42] LABS: Basophils % (A) 0 %; Eosinophils # (A) 0.1 k/uL (0-0.7); Eosinophils % (A) 1 %; HCT 49.2 % (39.0-53.0); Lymphocytes % (A) 9 %; MCH 34.3 pg (25.0-35.0); MCHC 34.6 g/dL (31.0-37.0); MCV 99.2 fL (80.0-100.0); Mean Platelet Volume 7.2; Monocytes # (A) 0.6 k/uL (0-1.0); Monocytes % (A) 6 %; Neutrophils # (A) 8.8 k/uL (1.3-7.7); Neutrophils % (A) 83 %; Platelet Count 181 k/uL (150-450); RBC 4.97 m/uL (4.30-5.90); RDW 11.7 % (11.5-15.5); WBC 10.6 k/uL (3.8-10.6)
[2024-06-28 13:50] LABS: INR 1.2 (<1.2); Partial Thromboplastin Time 26.7 sec (22.0-30.0); Prothrombin Time 12.8 sec (10.0-12.5)
[2024-06-28 14:09] LABS: ALT 41 U/L (4-49); AST 24 U/L (17-59); African American GFR (CKD) >90 (>60 ml/min/1.73 sqM); Albumin 4.2 g/dL (3.5-5.0); Alkaline Phosphatase 78 U/L (38-126); Amylase 45 U/L (30-110); Anion Gap 12 mmol/L; Blood Urea Nitrogen 12 mg/dL (9-20); Calcium 9.4 mg/dL (8.4-10.2); Carbon Dioxide 23 mmol/L (22-30); Chloride 98 mmol/L (98-107); Glucose 307 mg/dL (74-99); Lipase 195 U/L (23-300); Non-African American GFR(CKD) >90 (>60 ml/min/1.73 sqM); Potassium 4.1 mmol/L (3.5-5.1); Sodium 133 mmol/L (137-145); Total Bilirubin 1.9 mg/dL (0.2-1.3); Total Protein 6.9 g/dL (6.3-8.2)
--- NOTE | 2024-06-28 14:44 | CT ---
EXAMINATION TYPE: CT abdomen pelvis w con DATE OF EXAM: 06/28/2024 2:33 PM COMPARISON: Previous CT/pelvis 07/21/2023. CLINICAL INDICATION: Male, 63 years old with history of abdominal pain; abd pain/same pain as AAA TECHNIQUE: Axial CT abdomen pelvis w con;Sagittal and coronal reformats were created on a separate w orkstation. Contrast used:100 ml mL of Isovue 300 with IV Contrast, (none if empty) Oral contrast used: without Oral Contrast (none if empty) CT DLP: 1561.3 mGycm, Automated exposure control for dose reduction was used. FINDINGS: LOWER CHEST: Unremarkable ABDOMEN LIVER: Diffusely hypoattenuating parenchyma. GALLBLADDER AND BILE DUCTS: Unremarkable. PANCREAS: Unremarkable. SPLEEN: Unremarkable. ADRENAL GLANDS: Unremarkable. KIDNEYS AND URETERS: Kidneys enhance symmetrically without CT evidence of acute arthritis. No evidenc e of nephrolithiasis or enhancing renal mass. Nonspecific mild mesenteric stranding surrounding the m id/distal ureters. No obstructing stone or other lesion identified. PELVIS BLADDER: Circumferential wall thickening. REPRODUCTIVE: Unremarkable. ABDOMEN & PELVIS STOMACH AND BOWEL: Stomach and duodenum are unremarkable. Appendix unremarkable. No evidence of bowel obstruction. PERITONEUM/RETROPERITONEUM: No evidence of pneumoperitoneum or free fluid. VASCULATURE: Partially thrombosed infrarenal fusiform aneurysm of the abdominal aorta measuring 4.7 x 4.5 cm (series 97 and image 46) not significantly changed from prior study dated 07/21/2023 accountin g for measurement technique differences. No acute flow limiting stenosis of the hepatic artery or SMA . MUSCULOSKELETAL: No acute osseous abnormalities LYMPH NODES: No gross evidence for lymphadenopathy. SOFT TISSUE/ABDOMINAL WALL: Unremarkable IMPRESSION: 1. Mild nonspecific mesenteric diameter changes surrounding the mid and distal bilateral ureters and cervical urinary bladder wall thickening. Constellation of findings could reflect cystitis with pyel itis in the appropriate clinical setting. Correlate with urinalysis. Outpatient cystoscopy could be c onsidered if symptoms persist. No obstructing stone or other lesion identified. 2. Partially thrombosed fusiform aneurysm of the infrarenal abdominal aorta measuring 4.7 x 4.5 cm, not significantly changed from prior study dated 07/21/2023 attending for measurement technique differ ences. 3. Additional nonacute findings as above. [facility], Workstation: [email or web address], 06/28/2024 2:42 PM
[2024-06-28 14:52] LABS: Bacteria,Urine Many /hpf; RBC,Urine >182 /hpf (0-5); WBC,Urine >182 /hpf (0-5)
[2024-06-28 14:55] LABS: Appearance,Urine Turbid (Clear); Color,Urine Dark Red
[2024-06-28] MEDS: CIPROFLOXACIN HCL 500 MG TAB PO STA (16:00)
[2024-06-28 16:11] VITALS: BP 124/73; PULSE 72; RESP 20
== END 2024-06-28 16:10 | disposition home or self-care (01) ==
LOC: EC 12:18
DX: N39.0 Urinary tract infection, site not specified (principal); I71.40 Abdominal aortic aneurysm, without rupture, unspecified; Z87.891 Personal history of nicotine dependence
CPT/HCPCS: 36415; 86900; 86901; 80053; 82150; 83605; 83690; 85025; 85610; 85730; 86850; 81001; 74177; 99284; 96374; 96375; 96361; J2405; J1171; Q9967

== ENCOUNTER → 2024-11-23 | Outpatient (CLI) | payer MEDICARE ==
--- NOTE | 2024-11-24 08:21 | CTL ---
EXAMINATION TYPE: CT Low Dose Lung DATE OF EXAM: 11/23/2024 12:16 PM COMPARISON: None. SCREENING VISIT: Initial CT DIAGNOSTIC QUALITY: Satisfactory CLINICAL INDICATION: Male, 64 years old with history of N20.0 CALCULUS OF KIDNEY, 1 pack per day smok ing active smoker, Lung cancer screening, History of tobacco use. TECHNIQUE: Low dose computed tomography scan was performed through the chest at 1 mm thick sections a nd reconstructed images in the coronal plane at 1 mm thick sections. Contrast used: mL of , (none if empty) Oral contrast used: (none if empty) CT DLP: 102.2 mGycm, Automated exposure control for dose reduction was used. CT CTDI: 2.6 mGy, Automated exposure control for dose reduction was used. FINDINGS: LUNG NODULES: Present, detailed below: 1. There is a 1.4 cm nodule within the periphery of the right upper lobe. Series 4 image 109. LUNGS: COPD: Severity: None Fibrosis: Severity: None Lymph nodes: None Other findings: None RIGHT PLEURAL SPACE: Effusion: None Calcification: None Thickening: None Pneumothorax: None LEFT PLEURAL SPACE: Effusion: None Calcification: None Thickening: None Pneumothorax: None HEART: Other: Ascending thoracic aorta at the level the main pulmonary artery measures 4.0 cm. The main pul monary artery at the bifurcation measures 3.3 cm. Heart Size: Normal Coronary calcification: Severe coronary artery calcifications present. Pericardial effusion: None OTHER FINDINGS: Upper abdomen: Normal Bony thorax: Normal Supraclavicular region: Normal IMPRESSION: 1. 1.4 cm right upper lateral lung nodule. Additional workup with PET CT recommended. 2. Ascending thoracic aortic aneurysm 4.[address] CHEST RECOMMENDATION: 1. Follow-up PET/CT. 2. Smoking sensation. CT LUNG RAD: Lung-Rad 4A Suspicious S modifier: 70 thoracic aortic aneurysm 4.0 cm. [facility], , 11/24/2024 8:18 AM
== END | disposition home or self-care (01) ==
LOC: RADCTMAIN 11:52
PROVIDERS: ATTEND Family Medicine
DX: Z12.2 Encounter for screening for malignant neoplasm of respiratory organs (principal); F17.210 Nicotine dependence, cigarettes, uncomplicated; R91.1 Solitary pulmonary nodule; I71.21 Aneurysm of the ascending aorta, without rupture; I25.10 Atherosclerotic heart disease of native coronary artery without angina pectoris
CPT/HCPCS: 71271

== ENCOUNTER → 2024-12-10 | Outpatient (CLI) | payer MEDICARE ==
--- NOTE | 2024-12-14 15:38 | PE ---
EXAMINATION TYPE: PET CT fusion skull to thigh DATE OF EXAM: 12/11/2024 CLINICAL INDICATION:Male, 64 years old with history of R91.1 LUNG NODULE; TECHNIQUE: Following the intravenous administration of 9.97 mCi of F-18 FDG, whole body images are performed from the skull base to the midthigh. Images are reviewed on the computer in the coronal, a xial, and sagittal planes. Reconstructed rotating images are created on independent workstation and reviewed on the computer. A non-contrast CT is performed in conjunction with the PET scan. Glucose level 226 mg/dL CT DLP: 1034 mGycm, Automated exposure control for dose reduction was used. COMPARISON: CT 11/23/2024, 06/28/2024, PET/CT None, MRI: None FINDINGS: Mediastinal SUV mean is 2.3. Hepatic parenchyma SUV mean is 3.3. SKULL BASE AND NECK: No suspicious radiotracer activity. CHEST, MEDIASTINUM, AND HILAR REGION: Right upper lobe solid 1.3 cm pulmonary nodule. Demonstrates a max SUV of 1.7 which is at background levels. ABDOMEN AND PELVIS: No suspicious radiotracer activity. MUSCULOSKELETAL STRUCTURES: No suspicious radiotracer activity. OTHER CT: Bilateral carotid bifurcation calcification. Atherosclerotic calcification of the aorta and its branches. Bovine aortic arch. Moderate to severe coronary arterial calcifications. Mild cardiome jagdish. Multilevel degenerative changes of the spine. Degenerative changes of the right SI joint with i ncreased sclerosis. Postsurgical changes from right hip arthroplasty. Distal fusiform abdominal aorti c aneurysm measuring up to 4.6 cm. There is again eccentric mural thrombus. Redemonstration of circum ferential wall thickening of the urinary bladder likely related to underdistention. IMPRESSION: High blood sugar levels may artificially cause low radiotracer activity. 1. Redemonstration of right upper lobe 1.3 cm pulmonary nodule. No suspicious FDG activity identified . Follow-up CT chest in 3 months is recommended. 2. Redemonstration of distal abdominal aortic aneurysm measuring up to 4.6 cm. [facility], , 12/14/2024 3:36 PM
== END | disposition home or self-care (01) ==
LOC: RADPETMAIN 14:36
PROVIDERS: ATTEND Family Medicine
DX: I71.40 Abdominal aortic aneurysm, without rupture, unspecified (principal); R91.1 Solitary pulmonary nodule; R73.9 Hyperglycemia, unspecified
CPT/HCPCS: 78815; A9552